=== PATIENT | female | born 1965 | race Caucasian/White ===

== ENCOUNTER 2022-05-01 06:40 | Inpatient (IN) | payer MEDICARE, OTHER ==
[~2022-05-01] VITALS: Ht 165.1 cm; Wt 52.1 kg
--- NOTE | 2022-05-01 10:13 | NUR ---
AMBULATED WITH STEADY GAIT TO [facility]. PT HYPERVERBAL, ASKING ABOUT SON. RE-ORIENTED PT TO ER AND WHY SHE IS HERE.
[2022-05-01 11:16] LABS: BASOPHILS # (AUTO) 0.1 X10'3 (0-0.2); BASOPHILS % (AUTO) 1.4 % (0-1); EOSINOPHILS % (AUTO) 0.6 % (0-6); HEMOGLOBIN 13.8 g/dl (12.0-16.0); LYMPHOCYTES % (AUTO) 29.5 % (21-51); MEAN CORPUSCULAR HEMOGLOBIN 31.1 PG (27.0-31.0); MEAN CORPUSCULAR HGB CONC 33.6 g/dL (33.0-36.5); MEAN CORPUSCULAR VOLUME 92.6 FL (78-98); MONOCYTES # (AUTO) 0.5 X10'3 (0-0.9); MONOCYTES % (AUTO) 7.5 % (2-12); NEUTROPHILS # (AUTO) 4.2 X10'3 (1.8-7.7); PLATELET COUNT 353 X10'3 (140-440); RED BLOOD COUNT 4.43 X10'6 (4.20-5.60); RED CELL DISTRIBUTION WIDTH 13.6 % (11.5-14.5); WHITE BLOOD COUNT 6.8 X10'3 (4.5-11.0)
[2022-05-01 11:39] LABS: ALANINE AMINOTRANSFERASE 35 U/L (12-78); ALBUMIN 4.3 G/DL (3.4-5.0); ALBUMIN/GLOBULIN RATIO 1.3 (1.1-1.5); ALKALINE PHOSPHATASE 79 IU/L (46-116); ANION GAP 12 (8-16); ASPARTATE AMINO TRANSFERASE 19 U/L (10-37); BILIRUBIN,TOTAL 0.6 MG/DL (0.1-1.0); BLOOD UREA NITROGEN 17 MG/DL (7-18); BUN/CREATININE RATIO 19.1 (6.6-38.0); CALCIUM 9.3 MG/DL (8.5-10.1); CHLORIDE 102 MMOL/L (99-107); CREATININE 0.89 MG/DL (0.40-0.90); GLUCOSE 78 MG/DL (70-104); POTASSIUM 3.8 MMOL/L (3.5-5.1); SODIUM 139 MMOL/L (135-145); TOTAL CARBON DIOXIDE 24.6 MMOL/L (24-32); TOTAL PROTEIN 7.5 G/DL (6.4-8.2); eGFR 66 ML/MIN
[2022-05-01 11:44] LABS: ETHANOL < 0.010 GM/DL (0.0-0.010)
[2022-05-01 11:54] LABS: CLARITY,URINE SLIGHTLY CLOUDY (Clear); GLUCOSE, URINE NEGATIVE (Neg); KETONES,URINE 40 mg/dl (Neg); LEUKOCYTE ESTERASE ,URINE NEGATIVE (Neg); NITRITES, URINE NEGATIVE (Neg); OCCULT BLOOD,URINE NEGATIVE (Neg); PROTEIN,URINE NEGATIVE (Neg); UROBILINOGEN,URINE 0.2 E.U/dL (0.2-1.0)
[2022-05-01 11:55] LABS: UA COLLECTION TYPE CLN CATCH MIDSTREAM
[2022-05-01 11:56] LABS: COLOR,URINE DARK YELLOW (Yellow)
[2022-05-01 12:01] LABS: BACTERIA,URINE 2+ /HPF (Neg); MUCUS STRANDS MODERATE /LPF (Neg); RBC,URINE NONE SEEN /HPF (0-2); SQUAMOUS EPITHELIAL CELL,UR MODERATE /LPF (FEW); WBC,URINE 0-4 /HPF (0-4)
[2022-05-01 12:02] LABS: TRANSITIONAL EPI CELLS,URINE FEW /HPF
[2022-05-01 12:15] LABS: URINE AMPHETAMINE SCREEN NEGATIVE (Neg); URINE BARBITUATE SCREEN NEGATIVE (Neg); URINE BENZODIAZEPINES SCREEN NEGATIVE (Neg); URINE CANNABINOID SCREEN POSITIVE (Neg); URINE COCAINE SCREEN NEGATIVE (Neg); URINE METHADONE SCREEN NEGATIVE (Neg); URINE OPIATE SCREEN NEGATIVE (Neg); URINE PHENCYCLIDINE SCREEN NEGATIVE (Neg)
--- NOTE | 2022-05-01 13:30 | NUR ---
Pt brought over to [facility] from [facility]. She appears hypomanic, paranoid and sounds delusional. She thinks this publications writer is someone she knows and states, "your the one with the kid named Minna, I'm leaving and goes towards the door." Pt redirected back to the area where her bed is. Pt cooperative. Pt reports she is not taking any of her medications other than Levothyroxine 100mcg. She does use CBD and CBG.
--- NOTE | 2022-05-01 15:10 | NUR ---
Pt resting on her bed. She appears to be sleeping. RR even and unlabored.
[2022-05-01] MEDS ORDERED: LEVO100T9 PO (16:09)
--- NOTE | 2022-05-01 17:37 | NUR ---
Pt's eyes are closed. She appears to be resting. RR even and unlabored.
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
[2022-05-01] MEDS: LIDOcaine 5% patch TP SCH (19:31)
--- NOTE | 2022-05-01 19:33 | NUR ---
The patient is refusing any kind of medications and the only thing that she would take was a lidocaine patch for her back pain.
[2022-05-01] MEDS ORDERED: OLANZapine 2.5MG tablet PO ONE (20:45)
--- NOTE | 2022-05-01 21:33 | NUR ---
The patient appears to be sleeping
--- NOTE | 2022-05-01 23:16 | NUR ---
The patient appears to be sleeping
--- NOTE | 2022-05-02 01:03 | NUR ---
The patient appears to be sleeping
--- NOTE | 2022-05-02 03:00 | NUR ---
The patient appears to be sleeping
--- NOTE | 2022-05-02 05:05 | NUR ---
The patient is awake at this time
--- NOTE | 2022-05-02 07:00 | NUR ---
Received Pt awake and writing notes and giving them to staff. Pt is cooperative and appears guarded but pleasant. Pt is writing notes as is trying to explain or figure out who peole in her life and explain events.
[2022-05-02] MEDS: levoTHYROXINE 100mcg tablet PO SCH (08:14)
[2022-05-02] MEDS: LIDOcaine 5% patch TP SCH (08:14)
--- NOTE | 2022-05-02 09:15 | NUR ---
Pt ate breakfast and used bathroom. Pt took AM meds and is resting in bed at this time.
--- NOTE | 2022-05-02 11:05 | NUR ---
Pt resting in bed with her eyes closed. No complaints or issues at this time.
--- NOTE | 2022-05-02 12:40 | NUR ---
olite to staff.Pt woke and ate lunch well. She used bathroom and returned to bed. Pt polite to staff.
--- NOTE | 2022-05-02 14:35 | NUR ---
Pt in bed resting. Pt alert and engages appropriately when approached. Explained to her the 5150 hold process and that she has been accepted at [facility].
[2022-05-02] MEDS ORDERED: mag hydrox/Alum hydrox/simeth 30ml oral suspension PO PRN (14:40)
[2022-05-02] MEDS ORDERED: loperamide 2mg capsule PO PRN (14:40)
[2022-05-02] MEDS ORDERED: magnesium hydroxide 30ml (MOM) UD suspension PO PRN (14:40)
[2022-05-02] MEDS ORDERED: acetaminophen 325mg tablet PO PRN (14:40)
--- NOTE | 2022-05-02 16:00 | NUR ---
Admit note: Pt admitted today to [place] for [facility] health on a 5150 for GD from our ER at 1520. Pt is expressing paranoid delusions, her thinking is not clear and she can not express how she will meet her basic needs. Pt has history of brain surgery for cyst.
[2022-05-02 16:14] VITALS: BP 109/79
[2022-05-02 19:22] VITALS: BP 127/76
[2022-05-02] MEDS ORDERED: traZODone 50mg tablet PO PRN (20:05)
[2022-05-02] MEDS ORDERED: OLANZapine 2.5MG tablet PO SCH (21:00)
[2022-05-02] MEDS: LORazepam 1 MG tablet PO PRN (21:07)
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
[2022-05-03 08:00] VITALS: BP 132/77
[2022-05-03] MEDS: levoTHYROXINE 100mcg tablet PO SCH (08:02)
[2022-05-03] MEDS: LIDOcaine 5% patch TP SCH (08:03)
[2022-05-03] MEDS: LORazepam 1 MG tablet PO PRN ×2 (08:07→17:09)
[2022-05-03 10:03] VITALS: BP 132/77
[2022-05-03] MEDS: ondansetron 4mg rapidly disintigrating tab PO PRN (10:42)
[2022-05-03] MEDS: acetaminophen 325mg tablet PO PRN ×2 (13:33→17:07)
--- NOTE | 2022-05-03 16:47 | NUR ---
Nursing Progress Note: Problem: Pt admitted to [place] for [facility]al health on a 5150 for GD from our ER at 1520. Pt is expressing paranoid delusions, her thinking is not clear and she cannot express how she will meet her basic needs. Pt has history of brain surgery for cyst. Intervention: Medication given as ordered. Provided with a safe and therapeutic environment, clear communication, active listening and positive encouragement. Medication administration as per ordered with no adverse effect. Response: Patient awake this morning for breakfast, but she declined. Patient panics this morning, and is nauseous and anxious. She was provided 1mg of Ativan, which was partially effective per patient. Dr. Marcelino was on the unit at the time, so I received order for Zofran Q6 PO PRN. It was administered with good results, and patient went back to sleep. She had already refused breakfast and now lunch. At 1330 patient c/o pain. She reports headache and back pain. I bring her Tylenol, oh, I dont take Tylenol. Its been found to cause Autism. Its all over the news. Patient turns over and goes back to sleep. Received a call from the Lab at ~1415 that patient is Positive for MRSA in N[place]. She will be counseled on hand washing. Plan: Patient continues to require crisis interruption and stabilization with medication management and monitoring in a safe and therapeutic environment.
[2022-05-03] MEDS ORDERED: traZODone 50mg tablet PO PRN (19:15)
[2022-05-03 19:40] VITALS: BP 128/71
[2022-05-03] MEDS: OLANZapine 2.5MG tablet PO SCH (20:25)
--- NOTE | 2022-05-04 03:18 | NUR ---
Nursing Progress Note: Problem: Pt admitted to [place] for [facility] health on a 5150 for GD from our ER at 1520. Pt is expressing paranoid delusions, her thinking is not clear and she cannot express how she will meet her basic needs. Pt has history of brain surgery for cyst. Intervention: Medication given as ordered. Provided with a safe and therapeutic environment, clear communication, active listening and positive encouragement. Medication administration as per ordered with no adverse effect. Response: Patient was observed sleeping at Change of shift. Patient continued to sleep until nurse came in to bring medication. Nurse struggled to wake patient to take meds. Patient took medications and retuned to bed. Patient stayed in room all shift sleeping. Patient awoke to ask for Ativan before falling back to sleep. Plan: Patient continues to require crisis interruption and stabilization with medication management and monitoring in a safe and therapeutic environment.
[2022-05-04 07:30] VITALS: BP 128/74
[2022-05-04] MEDS: LORazepam 1 MG tablet PO PRN ×3 (08:00→22:29)
[2022-05-04] MEDS: levoTHYROXINE 100mcg tablet PO SCH (08:00)
[2022-05-04] MEDS: LIDOcaine 5% patch TP SCH (08:00)
--- NOTE | 2022-05-04 17:28 | NUR ---
Nursing Progress Note: Problem: Pt admitted to [place] for Behavioral health on a 5150 for GD from our ER at 1520. Pt is expressing paranoid delusions, her thinking is not clear and she cannot express how she will meet her basic needs. Pt has history of brain surgery for cyst. Intervention: Medication given as ordered. Provided with a safe and therapeutic environment, clear communication, active listening and positive encouragement. Medication administration as per ordered with no adverse effect. Response: Patient was awakened for breakfast. She became very anxious and described how her sons had been murdered, and she had no idea the fate of her other child. Patient very delusional and disorganized. She was provided Ativan 1mg for her anxiety, which was helpful, and she went back to sleep. Patient did not eat breakfast, but asked for yogurt which she did consume. At 1330 patient was vomiting clear, small amount of bile. She wouldnt describe exactly what happened, just that she was upset, and thats what caused it. Patient then slept until ~1500. She was woken by her roommate screaming. This upset the patient. She was again provided 1mg of Ativan. Patient states my memories are all jumbled, I cant keep good and bad memories in my mind. I just need to get a hold of my people to let them know where I am, but I dont know exactly where my phone is. Patient says she will get up out of bed later today, I need somewhere to sit where I can feel the sun. She also says she will eat tonight. Plan: Patient continues to require crisis interruption and stabilization with medication management and monitoring in a safe and therapeutic environment.
[2022-05-04] MEDS ORDERED: traZODone 50mg tablet PO PRN (19:10)
[2022-05-04 19:50] VITALS: BP 154/100
[2022-05-04] MEDS: OLANZapine 2.5MG tablet PO SCH (20:44)
[2022-05-04] MEDS: traZODone 50mg tablet PO SCH (20:45)
--- NOTE | 2022-05-05 04:00 | NUR ---
Nursing Progress Note: Problem: Pt admitted to [place] for Behavioral health on a 5150 for GD from our ER at 1520. Pt is expressing paranoid delusions, her thinking is not clear and she cannot express how she will meet her basic needs. Pt has history of brain surgery for cyst. Intervention: Medication given as ordered. Provided with a safe and therapeutic environment, clear communication, active listening and positive encouragement. Medication administration as per ordered with no adverse effect. Response: Patient was found pacing around unit at beginning of shift. Patient kept to her self and when spoken to patient voice was low and difficult to hear. Patient was later found laying in bed. Patient didn't participate in snack and had to be shaken awake to take medications. Patient awoke an hr later asking for something for anxiety. Patient was given lorazepam and repeat trazodone. Patient was checked on again and hr later and found asleep. Plan: Patient continues to require crisis interruption and stabilization with medication management and monitoring in a safe and therapeutic environment.
[2022-05-05 07:21] VITALS: BP 143/91
[2022-05-05] MEDS: levoTHYROXINE 100mcg tablet PO SCH (07:46)
[2022-05-05] MEDS: LIDOcaine 5% patch TP SCH (07:52)
--- NOTE | 2022-05-05 11:34 | NUR ---
Flask Pusher recieved a phone call from Pt.s mother requesting an update on her condition. No one listed on release of documentation form, and pt. refused to give a verbal to disclose info to her Mom. Paperwork re car in [place] will be brought to Hospital today.
[2022-05-05] MEDS: LORazepam 1 MG tablet PO PRN (14:54)
--- NOTE | 2022-05-05 16:56 | NUR ---
Nursing Progress Note: Vandana Problem: Pt admitted to [place] for Behavioral health on a 5150 for GD from our ER at 1520. Pt is expressing paranoid delusions, her thinking is not clear and she cannot express how she will meet her basic needs. Pt has history of brain surgery for cyst. Intervention: Seed Analysis Laboratory Assistant continues to provide pt. with a safe and therapeutic environment, clear communication, active listening and positive encouragement. Pt. encouraged to participate on unit and in group therapy, and 1:1 assessment provided with medication administration. Q15min checks continue for pt. safety. Response: Pt. denies SI, HI, AH, but reports VH I see earrings in the right ear, oh you cant understand Pt. states she is here d/t my life is in danger, there is about 90 people who want to kill me, Im in hiding Her DC plans is to go with my boyfriend or to my sons in [facility]. Pt. presents as paranoid and fatigued and spent most of the shift lying in bed. She is disheveled and wearing unit scrubs. She did eat her meals in the dining room but had poor intake. This advertising copy writer encouraged pt. to increase her intake throughout the shift. Received a phone call from her Mother, but was unable to speak to her re pt. as her Mother is not listed on paperwork and pt. refused to give a verbal allowing me to speak to her Mom. Pt. approached advertising copy writer after lunch c/o I am such a wreck, so much anxiety PRN Ativan given. Pt. laid in bed listening to headphones until dinner. Received a phone call from pt.s Mother needing a second form from the [facility] with a notary stamp before the vehicle can be released; Called LUIS Marks requesting a f/u. Plan: Patient continues to require crisis interruption and stabilization with medication management and monitoring in a safe and therapeutic environment.
[2022-05-05 20:00] VITALS: BP 138/89
[2022-05-05] MEDS: traZODone 50mg tablet PO SCH (20:19)
[2022-05-05] MEDS: OLANZapine 2.5MG tablet PO SCH (20:20)
[2022-05-06] MEDS: baclofen 10mg tablet PO PRN ×2 (00:32→09:55)
--- NOTE | 2022-05-06 00:49 | NUR ---
Nursing Progress Note: Vandana Problem: Pt admitted to [place] for Behavioral health on a 5150 for GD from our ER at 1520. Pt is expressing paranoid delusions, her thinking is not clear and she cannot express how she will meet her basic needs. Pt has history of brain surgery for cyst. Intervention: Tobacco Sprayer continues to provide pt. with a safe and therapeutic environment, clear communication, active listening and positive encouragement. Pt. encouraged to participate on unit and in group therapy, and 1:1 assessment provided with medication administration. Q15min checks continue for pt. safety. Response: Pt lying in bed with headphones at change of shift. Had to wake pt up for HS medications and Lidocaine patch removed. Pt states she is afraid of her family and to please pray for her fianc. Pt. is fatigued and was in her bed most of the shift. She declined snacks. She is disheveled and wearing unit scrubs. Pt c/o pain 7/10 in her right lower back, 10MG of baclofen given with moderate effect. Plan: Patient continues to require crisis interruption and stabilization with medication management and monitoring in a safe and therapeutic environment.
[2022-05-06 07:21] VITALS: BP 139/93
[2022-05-06] MEDS: LIDOcaine 5% patch TP SCH (07:21)
[2022-05-06] MEDS: levoTHYROXINE 100mcg tablet PO SCH (07:21)
--- NOTE | 2022-05-06 11:13 | NUR ---
Initial: Pt admit for psychosis. Currently on a regular diet and overall eating poorly with average 21% PO intake throughout LOS as pt often refuses meals. Per oil and gas specialist pt also declines snacks. See recommended nutrition interventions below that were d/w dietary in hopes of optimizing PO intake. [facility] 05/04. Will continue to follow closely. Recommendations: 1) Continue regular diet 2) Trial yogurt WB, cottage cheese WL, and a shake WS 3) Continue to offer snacks and encourage PO intake; honor food preferences as able 4) Bowel care PRN 5) Weekly scaled weights Addendum: 05/06/22 at [address] Amended: Links added.
--- NOTE | 2022-05-06 16:31 | NUR ---
Nursing Progress Note: Vandana Problem: Pt admitted to [place] for Behavioral health on a 5150 for GD from our ER at 1520. Pt is expressing paranoid delusions, her thinking is not clear and she cannot express how she will meet her basic needs. Pt has history of brain surgery for cyst. Intervention: Mobile Developer continues to provide pt. with a safe and therapeutic environment, clear communication, active listening and positive encouragement. Pt. encouraged to participate on unit and in group therapy, and 1:1 assessment provided with medication administration. Q15min checks continue for pt. safety. Response: Pt. denies SI, HI, and A/ VH her DC plans remain unclear as she stated I may go with my boyfriend or my son Pt. reports 7/10 back pain and was administered routine lidocaine patch and PRN Tylenol was offered; she reports I cant take Tylenol it gives me Autism Mobile Developer provided PRN Baclofen. Pt. spent most of the shift lying in bed with sunglasses and headphones on. She approached content writer asking for 1:1 cream from [place] Mobile Developer is unfamiliar with this cream and pt. reported its CBD and Marijuana cream Mobile Developer encouraged pt. to discuss the cream with provider. Mobile Developer did also offer to contact provider for an alternative to Tylenol, pt. responded I dont take medications Today pt. did attend all meals in the dining room where she sat alone in a chair with her tray in her lap socializing with no one and typically ate poorly. Plan: Patient continues to require crisis interruption and stabilization with medication management and monitoring in a safe and therapeutic environment.
[2022-05-06] MEDS ORDERED: methyl salicylate/menthol cream 57gm TP PRN (18:00)
[2022-05-06] MEDS ORDERED: baclofen 10mg tablet PO PRN (18:00)
[2022-05-06 19:29] VITALS: BP 136/91
[2022-05-06] MEDS: OLANZapine 2.5MG tablet PO SCH (20:39)
[2022-05-06] MEDS: LORazepam 1 MG tablet PO PRN (20:40)
[2022-05-06] MEDS: traZODone 50mg tablet PO SCH (20:40)
--- NOTE | 2022-05-07 04:49 | NUR ---
Nursing Progress Note: Vandana Problem: Pt admitted to [place] for Behavioral health on a 5150 for GD from our ER at 1520. Pt is expressing paranoid delusions, her thinking is not clear and she cannot express how she will meet her basic needs. Pt has history of brain surgery for cyst. Intervention: Provide pt. with a safe and therapeutic environment, clear communication, active listening and positive encouragement. Pt. encouraged to participate on unit and in group therapy, and 1:1 assessment provided with medication administration. Q15min checks continue for pt. safety. Response: Patient was observed laying in bed with headphones and sunglass on at beginning of shift. Patient continued to sleep until waking up throwing up. Patient states that she hasn't really eaten all day because she can not stand the taste of the food and its all just so processed that it makes her sick. Patient was encouraged to eat some of a sandwich before taking night medication as to not irritate her stomach more. Patient took medication without issue including requested prn lorazepam before returning back to bed. Plan: Patient continues to require crisis interruption and stabilization with medication management and monitoring in a safe and therapeutic environment.
[2022-05-07] MEDS: levoTHYROXINE 100mcg tablet PO SCH (07:57)
[2022-05-07] MEDS: LIDOcaine 5% patch TP SCH (07:57)
[2022-05-07 08:00] VITALS: BP 130/70
--- NOTE | 2022-05-07 16:09 | NUR ---
Nursing Progress Note: Vandana Problem: Pt admitted to [place] for Behavioral health on a 5150 for GD from our ER at 1520. Pt is expressing paranoid delusions, her thinking is not clear and she cannot express how she will meet her basic needs. Pt has history of brain surgery for cyst. Intervention: Superannuation Clerk continues to provide pt. with a safe and therapeutic environment, clear communication, active listening and positive encouragement. Pt. encouraged to participate on unit and in group therapy, and 1:1 assessment provided with medication administration. Q15min checks continue for pt. safety. Response: Pt. denies SI, HI, and A/ VH her DC plans are let my son handle all of it, my son Yinka Pt. presents with some disorientation when discussing her Hx. She is guarded at times and disorganized. She spent most of the shift self-isolating, lying in bed listening to headphones and wearing sunglasses. She did attend all meals in the dining room but continues to have poor meal intake. She is disheveled and refused needing a shower. She takes her meds without hesitancy and has no c/o pain this shift. Plan: Patient continues to require crisis interruption and stabilization with medication management and monitoring in a safe and therapeutic environment.
[2022-05-07 20:00] VITALS: BP 161/77
[2022-05-07] MEDS: OLANZapine 2.5MG tablet PO SCH (20:17)
[2022-05-07] MEDS: traZODone 50mg tablet PO SCH (20:17)
[2022-05-07 21:09] VITALS: BP 161/77
--- NOTE | 2022-05-08 00:11 | NUR ---
Nursing Progress Note: Vandana Problem: Patient admitted to [place] for Behavioral health on a 5150 for GD from our ER at 1520. Pt is expressing paranoid delusions, her thinking is not clear and she cannot express how she will meet her basic needs. Pt has history of brain surgery for cyst. Intervention: Provide patient with a safe and therapeutic environment, clear communication, active listening and positive encouragement. Pt. encouraged to participate on unit and in group therapy, and 1:1 assessment provided with medication administration. Q15min checks continue for pt. safety. Response: Patient found laying down in bed at shift change. Patient listening to headphones. Patient 1:1, pt denies all MH S/S. Patient complained of a small headache when offered Tylenol the pt stated that "Tylenol causes Autism, and just wait and see!" Pt pleasant otherwise and cooperative. Took evening meds w/o complaint. Reports that she ate all of her dinner that evening. Pt went to bed shortly after med pass. Plan: Patient continues to require crisis interruption and stabilization with medication management and monitoring in a safe and therapeutic environment.
[2022-05-08 07:53] VITALS: BP 104/66
[2022-05-08] MEDS: LIDOcaine 5% patch TP SCH (08:30)
[2022-05-08] MEDS: levoTHYROXINE 100mcg tablet PO SCH (08:30)
--- NOTE | 2022-05-08 17:21 | NUR ---
Nursing Progress Note: Problem: Pt admitted to [place] for Behavioral health on a 5150 for GD from our ER at 1520. Pt is expressing paranoid delusions, her thinking is not clear and she cannot express how she will meet her basic needs. Pt has history of brain surgery for cyst. Intervention: Attempted to provide 1:1 assessment and administer medications. Provided clear communication and positive encouragement. Monitored Q15min safety checks. Response: Pt did not want anything to do with this nurse. Another nurse administered medications and assisted with the AM assessment. Pt spent most of the day curled up on her bed with headphones on. Plan: Patient continues to require crisis interruption and stabilization with medication management and monitoring in a safe and therapeutic environment.
[2022-05-08 20:39] VITALS: BP 117/86
[2022-05-08] MEDS ORDERED: amitriptyline 25mg tablet PO SCH (21:00)
[2022-05-08] MEDS: OLANZapine 2.5MG tablet PO SCH (21:22)
[2022-05-08] MEDS: amitriptyline 50mg tablet PO SCH (21:22)
[2022-05-08] MEDS: olanzapine 10mg tablet PO PRN (23:59)
[2022-05-08] MEDS: LORazepam 1 MG tablet PO PRN (23:59)
--- NOTE | 2022-05-09 00:01 | NUR ---
Nursing Progress Note: Vandana Problem: Patient admitted to [place] for Behavioral health on a 5150 for GD from our ER at 1520. Pt is expressing paranoid delusions, her thinking is not clear and she cannot express how she will meet her basic needs. Pt has history of brain surgery for cyst. Intervention: Provide patient with a safe and therapeutic environment, clear communication, active listening and positive encouragement. Pt. encouraged to participate on unit and in group therapy, and 1:1 assessment provided with medication administration. Q15min checks continue for pt. safety. Response: Patient lying in bed at shift change. patient cooperative and polite. Patient 1:1 pt denies A/V H, S/I H/I. Patient refused snack. Patient took evening meds w/o complications. Patient complained had diarrhea. Imodium given with good effect. Patient later woke with anxiety and complained of not being able to sleep. Zyprexa and Ativan given with good effect. Plan: Patient continues to require crisis interruption and stabilization with medication management and monitoring in a safe and therapeutic environment.
--- NOTE | 2022-05-09 07:32 | NUR ---
Reassessment: Pt continues on Regular diet w/ variable PO intake, avg 46% x 10 meals which meets approximately 85% of est energy needs and 100% of est protein needs. Pt also receiving additional food items w/ meal trays. LBM 05/08 reported to be diarrhea, receiving PRN imodium. No change to recommendations, will continue to monitor. Recommendations: 1) Continue regular diet 2) Yogurt WB, cottage cheese WL, and a shake WS 3) Continue to offer snacks and encourage PO intake; honor food preferences as able 4) Bowel care PRN 5) Weekly scaled weights Addendum: 05/09/22 at [address] Amended: Links added.
[2022-05-09 08:00] VITALS: BP 102/70
[2022-05-09] MEDS: LIDOcaine 5% patch TP SCH (08:14)
[2022-05-09] MEDS: levoTHYROXINE 100mcg tablet PO SCH (08:14)
--- NOTE | 2022-05-09 13:42 | NUR ---
[address] SINDI Godoy
--- NOTE | 2022-05-09 15:57 | NUR ---
Nursing Progress Note: Problem: Pt admitted to [place] for Behavioral health on a 5150 for GD from our ER at 1520. Pt is expressing paranoid delusions, her thinking is not clear and she cannot express how she will meet her basic needs. Pt has history of brain surgery for cyst. Intervention: Provided 1:1 assessment with therapeutic communication and active listening. Medication administration, education and monitoring. Prompts provided to get pt to come out of her room for meals and activities. Provided clear communication and positive encouragement. Monitored Q15min safety checks. Response: Pt denies SI/HI, A/VH. Pt joined peers in the main room for meals. She was compliant with medications and treatment. She spent most of the day on her bed curled up into a ball with headphones on. Plan: Patient continues to require crisis interruption and stabilization with medication management and monitoring in a safe and therapeutic environment.
[2022-05-09 19:56] VITALS: BP 108/69
[2022-05-09] MEDS: OLANZapine 2.5MG tablet PO SCH (20:41)
[2022-05-09] MEDS: amitriptyline 50mg tablet PO SCH (20:41)
[2022-05-09] MEDS: olanzapine 10mg tablet PO PRN (22:53)
[2022-05-09] MEDS: LORazepam 1 MG tablet PO PRN (22:53)
--- NOTE | 2022-05-10 00:25 | NUR ---
Nursing Progress Note: Vandana Problem: Pt admitted to [facility] for Behavioral health on a 5150 for GD from our ER at 1520. Pt is expressing paranoid delusions, her thinking is not clear and she cannot express how she will meet her basic needs. Pt has history of brain surgery for cyst. Intervention: Provided 1:1 assessment with therapeutic communication and active listening. Medication administration, education and monitoring. Prompts provided to get pt to come out of her room for meals and activities. Provided clear communication and positive encouragement. Monitored Q15min safety checks. Response: Pt denies SI/HI, A/VH, but states she always has anxiety. Pt c/o lower back pain 04/17, removed lidocaine patch. She was compliant with medications and treatment. Pt isolated to her room lying in bed with headphones on. Pt up around 2300 c/o being wide awake, pt given PRN Ativan and Zyprexa with good effect. Plan: Patient continues to require crisis interruption and stabilization with medication management and monitoring in a safe and therapeutic environment.
[2022-05-10 07:20] VITALS: BP 99/75
[2022-05-10] MEDS: levoTHYROXINE 100mcg tablet PO SCH (07:59)
[2022-05-10] MEDS: LIDOcaine 5% patch TP SCH (08:00)
--- NOTE | 2022-05-10 14:28 | NUR ---
Vandana's mother, Cheryl (ph# [phone]), called to request a notary come to the unit for Vandana to sign a document in order for family to get her car out of impound. Spoke to Vandana about this and she is agreeable to signing the document. However, she was very specific about not wanting her mom involved. She would like her car towed to [facility] parking lot so it will be available to her upon discharge. Vandana reported she does not want to return to her home. She reported "it is not safe". She did not know where she will go upon discharge. Cheryl reported that Vandana has not paid rent since Nov and that the landlord has been kind to Vandana and allowed her to stay there. Cheryl expressed concern that Vandana should not live by herself, "she's nutty and can't take care of herself". Cheryl is going to try to coordinate a notary to come onto the unit and will let clinical social worker know. Electromechanical Equipment Tester got the OK from Roby, Director, for a notary to come onto the unit. SINDI Godoy
--- NOTE | 2022-05-10 15:12 | NUR ---
Pt. attended group today. Todays group was about the difference between Growth Mindset vs. Fixed Mindset. We learned about the differences and then discussed what aspect of developing a growth mindset they wanted to work on. Pt engaged appropriately in the group. She shared her thoughts easily. Her thought content appeared to have some paranoia, her thought process was linear. She was alert and oriented X 4. Her demeanor was calm, compliant and pleasant to work with. She was pleasant to her peers and engaged well with the group. She appeared to enjoy socializing. Her mood was good with a full range of affect. She showed insight in to her mental illness and her process. She was able to engage with what we were talking about well and think about what she wants to let go of in terms of that things that are hindering her and was also able to say what things she wants to keep a hold of. Cynthia Shipley, SNACK FOODS MIXER OPERATOR
[2022-05-10 20:00] VITALS: BP 95/68
[2022-05-10] MEDS: OLANZapine 2.5MG tablet PO SCH (20:23)
[2022-05-10] MEDS: amitriptyline 50mg tablet PO SCH (20:23)
[2022-05-11] MEDS: LORazepam 1 MG tablet PO PRN (00:26)
[2022-05-11] MEDS: olanzapine 10mg tablet PO PRN (00:26)
--- NOTE | 2022-05-11 00:48 | NUR ---
Nursing Progress Note: Vandana Problem: Pt admitted to [place] for Behavioral health on a 5150 for GD from our ER at 1520. Pt is expressing paranoid delusions, her thinking is not clear and she cannot express how she will meet her basic needs. Pt has history of brain surgery for cyst. Intervention: Provided 1:1 assessment with therapeutic communication and active listening. Medication administration, education and monitoring. Prompts provided to get pt to come out of her room for meals and activities. Provided clear communication and positive encouragement. Monitored Q15min safety checks. Response: Pt denies SI/HI, A/VH, seems to be in good spirits. She has some mild anxiety but denies depression. Pt states she wants to stay here until but is unsure of where she will go. She wants to get some of her personal items from a friends house. Pt has some paranoia regarding another peer on the unit who she avoids. Pt states her Elavil makes her feel wired and she cant sleep. Pt given PRN Ativan and Zyprexa at 0030. Plan: Patient continues to require crisis interruption and stabilization with medication management and monitoring in a safe and therapeutic environment.
[2022-05-11] MEDS: levoTHYROXINE 100mcg tablet PO SCH (07:41)
[2022-05-11] MEDS: LIDOcaine 5% patch TP SCH ×2 (07:42→08:00)
[2022-05-11 08:00] VITALS: BP 99/80
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
--- NOTE | 2022-05-11 12:19 | NUR ---
Phone call with son-Yinka Honeycutt (ph# [phone]), Vandana's son, returned keno writer's call. Inquired about housing options and he reported he does not know of any. Yinka reported he lives in [facility]. He reported he had not talked to his mom for a couple months prior to her being in the hospital. He reported she had said some things to him that he felt required him to have some space from her. He reported none of the women in his family talk to each other-Vandana refuses to talk to her mother, Cheryl, and Vandana also does not have contact with her daughter (Yinka's older sister). Yinka reported he has an 18 y/o brother with autism who lives with their father in [place]. He reported his parents were for almost 30 years and that they have been for the last 10-11 years. He reported the person who Vandana is calling her boyfriend is 28 y/o and Yinka went to high school with him and he does not know what the real nature of their relationship is. SINDI Godoy
--- NOTE | 2022-05-11 12:30 | NUR ---
KHALIF Rsos's mother, Cheryl (ph# [phone]), called to report that a khalif will come to the hospital at 1 PM today to meet with Vandana to have her sign paperwork in order for the family to be able to get her car out of impound. SINDI Godoy
--- NOTE | 2022-05-11 16:54 | NUR ---
Nursing Progress Note: Problem: Pt admitted to [place] for Behavioral health on a 5150 for GD from our ER at 1520. Pt is expressing paranoid delusions, her thinking is not clear and she cannot express how she will meet her basic needs. Pt has history of brain surgery for cyst. Intervention: Provided 1:1 assessment with therapeutic communication and active listening. Medication administration, education and monitoring. Prompts provided to get pt to come out of her room for meals and activities. Provided clear communication and positive encouragement. Monitored Q15min safety checks. Response: Patient slept until breakfast. Easily wakes for morning meds. Patient accepted Synthroid, but declined Lidocaine patch, I dont need that because Im leaving today. She has spent all day in her room. In the afternoon a director of publications came to see her and have papers signed. Patient appears to be paranoid and anxious, but refuses assistance with it. She denies MH symptoms. Plan: Patient continues to require crisis interruption and stabilization with medication management and monitoring in a safe and therapeutic environment.
--- NOTE | 2022-05-11 16:55 | NUR ---
VEHICLE Vandana's vehicle, [employer], will get towed to the parking lot across the street from the hospital (employee parking) tomorrow per her mother, Cheryl. SINDI Godoy
[2022-05-11 19:48] VITALS: BP 104/68
[2022-05-11] MEDS: OLANZapine 2.5MG tablet PO SCH (20:43)
[2022-05-11] MEDS: tizanidine 4mg tablet PO PRN (20:43)
[2022-05-11] MEDS: prazosin 1mg capsule PO SCH (20:43)
--- NOTE | 2022-05-12 00:27 | NUR ---
Nursing Progress Note: Nessa Problem: Pt admitted to [place] for Behavioral health on a 5150 for GD from our ER at 1520. Pt is expressing paranoid delusions, her thinking is not clear and she cannot express how she will meet her basic needs. Pt has history of brain surgery for cyst. Intervention: Provided 1:1 assessment with therapeutic communication and active listening. Medication administration, education and monitoring. Prompts provided to get pt to come out of her room for meals and activities. Provided clear communication and positive encouragement. Monitored Q15min safety checks. Response: Patient in her room sitting writing with headphones on. Pt said she talked with her aunt today and that it went well. She continues to exhibits some anxiety and paranoia with another peer on the unit and stays out of his way. She c/o of back pain 05/18, provider notified and PRN 4MG of zanaflex given. She denies MH symptoms. Plan: Patient continues to require crisis interruption and stabilization with medication management and monitoring in a safe and therapeutic environment.
[2022-05-12 08:41] VITALS: BP 103/74
[2022-05-12] MEDS: olanzapine 10mg tablet PO SCH (09:20)
[2022-05-12] MEDS: levoTHYROXINE 100mcg tablet PO SCH (09:20)
[2022-05-12] MEDS: LIDOcaine 5% patch TP SCH (09:53)
[2022-05-12] MEDS ORDERED: ketorolac tromethamine 15mg/ml inj. IM ONE (10:40)
[2022-05-12] MEDS ORDERED: ketorolac trometh. 30mg/ml inj. IM ONE (10:55)
--- NOTE | 2022-05-12 11:21 | NUR ---
Reassessment: PO intake continues to fluctuate however overall appears to be improving, documented with average 56% PO intake of meals meeting 100% of estimated protein and energy needs. Pt continues receiving additional food items on meal trays in hopes of optimizing PO intake. LBM 05/10. No further nutrition intervention implemented at this time. Will continue to follow. Recommendations: 1) Continue regular diet 2) Yogurt WB, cottage cheese WL, and a shake WS 3) Continue to offer snacks and encourage PO intake; honor food preferences as able 4) Bowel care PRN 5) Weekly scaled weights Addendum: 05/12/22 at [address] Amended: Links added.
--- NOTE | 2022-05-12 12:18 | NUR ---
DECLINED TO APPLY FOR [employer] Per Lorenza Lucio, Patient Service Rep., [employer] RECEIVED REFERRAL FROM ADMITTING VIA EMAIL. PT WITH [facility] PART [facility] ONLY. SHE HAD [facility] THAT TERMED ON 04/28/22. FOLLOWED UP WITH PT INHOUSE. VERIFIED DEMOGRAPHICS. PT STATES TO RECEIVE $3500/MONTH FROM [email or web address] [facility] BUT PAYS $1000/MONTH TOWARDS CHILD SUPPORT. SHE DECLINED ASSISTANCE WITH [employer] STATING SHE DOES NOT QUALIFY. EXPLAINED TO PT SHE CAN HAVE BENEFITS WITH [employer] BUT SHE DECLINED DUE TO HIGH [employer]. SHE STATES SHE PLANS ON REINSTATING HER [facility] BENEFITS WHEN SHE RETURNS BACK TO HER JOB THROUGH [employer]. PT WAS PROVIDED WITH [employer] CONTACT INFO, ACCOUNT WILL BE CLOSED. SINDI Godoy
--- NOTE | 2022-05-12 16:58 | NUR ---
Nursing Progress Note: Problem: Pt admitted to [place] for Behavioral health on a 5150 for GD from our ER at 1520. Pt is expressing paranoid delusions, her thinking is not clear and she cannot express how she will meet her basic needs. Pt has history of brain surgery for cyst. Intervention: Provided 1:1 assessment with therapeutic communication and active listening. Medication administration, education and monitoring. Prompts provided to get pt to come out of her room for meals and activities. Provided clear communication and positive encouragement. Monitored Q15min safety checks. Response: Patient was up for breakfast and morning meds. She ate breakfast and went back to her room to wait for a shower. After her shower, she allowed the Lidocaine patch to be placed. Patient was talkative this morning. She talk about high schools not having nurses anymore, and theres this radio neuropsychiatrist that she listens to that she believes should be played in schools that would help people not become cutters. Patient knows that her car has been retrieved from the tow yard, but not exactly where it is. She has been compliant with medications, and seems indifferent to being here. She has been told that shell be here longer, and has no problem with it. Plan: Patient continues to require crisis interruption and stabilization with medication management and monitoring in a safe and therapeutic environment.
[2022-05-12 19:00] VITALS: BP 114/77
[2022-05-12] MEDS: prazosin 1mg capsule PO SCH (20:53)
[2022-05-12] MEDS: OLANZapine 2.5MG tablet PO SCH (21:00)
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
[2022-05-13 07:08] VITALS: BP 111/74
[2022-05-13] MEDS: olanzapine 10mg tablet PO SCH (07:23)
[2022-05-13] MEDS: levoTHYROXINE 100mcg tablet PO SCH (07:23)
[2022-05-13] MEDS: LIDOcaine 5% patch TP SCH (07:27)
--- NOTE | 2022-05-13 17:07 | NUR ---
Nursing Progress Note: Problem: Pt admitted to [place] for Behavioral health on a 5150 for GD from our ER at 1520. Pt is expressing paranoid delusions, her thinking is not clear and she cannot express how she will meet her basic needs. Pt has history of brain surgery for cyst. Intervention: Provided 1:1 assessment with therapeutic communication and active listening. Medication administration, education and monitoring. Prompts provided to get pt to come out of her room for meals and activities. Provided clear communication and positive encouragement. Monitored Q15min safety checks. Response: Patient slept until breakfast. She was compliant with AM meds. Her appetite is good and shes eating her meals. Patient has been brought some belongings, and is dressing in her personal clothes. She mostly sits in her room with sunglasses and headphones on. Patient has no problem with her new roommate. She continues to be delusional and hypervigilant about another patient that she believes has bad energy and can cause harm. I can tell if someone is planning harm. That patient has been discharged today. Patient now coming out of her room and joining the milieu. She is in her own personal clothing and feeling more comfortable. Patient has an outgoing roommate that draws her out of the room. She continues to deny all MH symptoms. Plan: Patient continues to require crisis interruption and stabilization with medication management and monitoring in a safe and therapeutic environment.
[2022-05-13] MEDS: tizanidine 4mg tablet PO PRN (19:24)
[2022-05-13] MEDS: LORazepam 1 MG tablet PO PRN (19:24)
[2022-05-13 20:00] VITALS: BP 101/67
[2022-05-13] MEDS: prazosin 1mg capsule PO SCH (20:47)
[2022-05-13] MEDS: OLANZapine 2.5MG tablet PO SCH (20:48)
--- NOTE | 2022-05-14 03:46 | NUR ---
Nursing Progress Note: RENNY RN Problem: Pt admitted to [place] for Behavioral health on a 5150 for GD from our ER at 1520. Pt is expressing paranoid delusions, her thinking is not clear and she cannot express how she will meet her basic needs. Pt has history of brain surgery for cyst. Intervention: Provided 1:1 assessment with therapeutic communication and active listening. Medication administration, education and monitoring. Prompts provided to get pt to come out of her room for meals and activities. Provided clear communication and positive encouragement. Monitored Q15min safety checks. Response: Patient was pleasant when I went to introduce myself at the beginning of shift. Patient is respectful and receptive to care. She was compliant with assessments and expressed that she would like her clothes that she came with on admission. PM medications administered as well. She also complained of backache of which meds were given. Patient had headphones on and also reading a book. She continues to be delusional and hypervigilant about another patient that she believes has bad energy and can cause harm. I can tell if someone is planning harm. Offered Ativan to calm her down and patient has been sleeping through the night. No other complaints and she remained in her room the rest of the night. Plan: Patient continues to require crisis interruption and stabilization with medication management and monitoring in a safe and therapeutic environment.
[2022-05-14 07:30] VITALS: BP 101/69
[2022-05-14] MEDS: LIDOcaine 5% patch TP SCH ×2 (08:00→08:39)
[2022-05-14] MEDS: levoTHYROXINE 100mcg tablet PO SCH (08:39)
[2022-05-14] MEDS: OLANZapine 2.5MG tablet PO SCH ×2 (08:51→22:26)
--- NOTE | 2022-05-14 15:38 | NUR ---
Nursing Progress Note: Vandana Problem: Pt admitted to [place] for Behavioral health on a 5150 for GD from our ER at 1520. Pt is expressing paranoid delusions, her thinking is not clear and she cannot express how she will meet her basic needs. Pt has history of brain surgery for cyst. Intervention: Medication given as ordered. Provided with a safe and therapeutic environment, clear communication, active listening and positive encouragement. Response: Patient is resting quietly in bed at the start of the shift. Joins her peers in the dining room for meals and interacts appropriately. Isolates to her room most of the day. Patient appears guarded and denies any mental health symptoms. Appears paranoid. Complains of pain and numbness in her back and legs but the location of pain and numbness appears to change. Refuses the Lidoderm patch stating that it has no effect. Patch D/Cd. Plan: Patient continues to require crisis interruption and stabilization with medication management and monitoring in a safe and therapeutic environment.
[2022-05-14 19:00] VITALS: BP 145/105
[2022-05-14] MEDS: ondansetron 4mg rapidly disintigrating tab PO PRN (19:33)
[2022-05-14] MEDS: LORazepam 1 MG tablet PO PRN (19:38)
[2022-05-14] MEDS: tizanidine 4mg tablet PO PRN (19:39)
[2022-05-14 21:00] VITALS: BP_SYST 86; BP_SYST 88; BP_DIAS 54; BP_DIAS 64
[2022-05-14] MEDS: prazosin 1mg capsule PO SCH (21:00)
[2022-05-14] MEDS ORDERED: normal saline 1000ml 1,000 ML IV ONE (21:25)
[2022-05-15 00:15] VITALS: BP 98/62
--- NOTE | 2022-05-15 04:43 | NUR ---
Nursing Progress Note: Vandana Problem: Pt admitted to [place] for Behavioral health on a 5150 for GD from our ER at 1520. Pt is expressing paranoid delusions, her thinking is not clear and she cannot express how she will meet her basic needs. Pt has history of brain surgery for cyst. Intervention: Medication given as ordered. Provided with a safe and therapeutic environment, clear communication, active listening and positive encouragement. Response: At shift change, pt found in bed; states she is nauseated & feels nervous; pt very agitated & also c/o's pain; also concerned that her b/p is high. medicated with zofran, ativan & zanaflex; pt wearing her own clothes; appearance slightly disheveled; refuses shower; only wanted to change into green scrubs; pt isolates in room; Becoming calmer after PRN meds were given; awaken to recheck b/p with SPB in the 80's; pt arouses easily, & states she feels better; per Dr Reyes orders, PIV placed; one liter NS bolus given. Plan: Patient continues to require crisis interruption and stabilization with medication management and monitoring in a safe and therapeutic environment.
[2022-05-15] MEDS: OLANZapine 2.5MG tablet PO SCH ×2 (07:28→22:11)
[2022-05-15] MEDS: levoTHYROXINE 100mcg tablet PO SCH (07:28)
[2022-05-15 08:04] VITALS: BP 105/74
[2022-05-15] MEDS: ondansetron 4mg rapidly disintigrating tab PO PRN ×2 (08:39→14:50)
--- NOTE | 2022-05-15 17:10 | NUR ---
Nursing Progress Note: Vandana Problem: Pt admitted to [place] for Behavioral health on a 5150 for GD from our ER at 1520. Pt is expressing paranoid delusions, her thinking is not clear and she cannot express how she will meet her basic needs. Pt has history of brain surgery for cyst. Intervention: Medication given as ordered. Provided with a safe and therapeutic environment, clear communication, active listening and positive encouragement. Response: Patient is resting quietly in bed at the start of the shift. Cooperative with medication and assessment. Patient has 1 episode of emesis just following breakfast. PRN Zofran is given with good effect. She is guarded and minimizes her mental health symptoms. Patient has 1 small episode of emesis after lunch. PRN Zofran given with good results. Isolates to her room except for meals and to meet her needs. Plan: Patient continues to require crisis interruption and stabilization with medication management and monitoring in a safe and therapeutic environment.
[2022-05-15] MEDS: LORazepam 1 MG tablet PO PRN (19:02)
[2022-05-15 19:27] VITALS: BP 161/101
[2022-05-15] MEDS: prazosin 1mg capsule PO SCH (21:00)
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
[2022-05-16] MEDS: olanzapine 10mg tablet PO PRN (04:46)
--- NOTE | 2022-05-16 04:47 | NUR ---
PRN Zyprexa given. Pt got up tearful and agitated.
[2022-05-16] MEDS: levoTHYROXINE 100mcg tablet PO SCH (07:38)
[2022-05-16] MEDS: OLANZapine 2.5MG tablet PO SCH ×2 (07:39→20:29)
[2022-05-16 08:00] VITALS: BP 87/67
--- NOTE | 2022-05-16 10:05 | NUR ---
CASE MANAGEMENT Spoke with DR. Ribera office where Pt. wanted to access outpt. mental health services, due to her not having Medicare Part B they will not take her insurance (she only has Medicare Part A). Gave Pt. information for [employer] for her to apply to so she can have some coverage if she wishes. At this point she would have to be a márquez pay to enroll with Dr. Ribera. Cynthia Shipley, ENGRAVING PATTERNMAKER
--- NOTE | 2022-05-16 18:12 | NUR ---
Nursing Progress Note: Problem: Pt admitted to [place] for Behavioral health on a 5150 for GD from our ER at 1520. Pt is expressing paranoid delusions, her thinking is not clear and she cannot express how she will meet her basic needs. Pt has history of brain surgery for cyst. Intervention: Medication given as ordered. Provided with a safe and therapeutic environment, clear communication, active listening and positive encouragement. Response: Received Pt in bed sleeping w/o distress at the beginning of this shift. Pt woke and was cooperative with vitals and took AM meds w/o issue. Pt ate breakfast and lunch with others, but isolated to room rest of the day mostly. Did not socialize with others. Pt spoke of her mother as a foster mother. She believes she is leaving today and is concerned about her animals. Pt visibly upset that she is not being discharged today. Pt at 1800 c/o MOMIN and offered Tylenol. Pt stated Tylenol causes autism. She stated that sumatriptan helps. Plan: Patient continues to require crisis interruption and stabilization with medication management and monitoring in a safe and therapeutic environment.
[2022-05-16] MEDS ORDERED: SUMAtriptan 25 MG tablet PO ONE (18:40)
[2022-05-16] MEDS ORDERED: SUMAtriptan 25 MG tablet PO PRN (18:40)
[2022-05-16] MEDS: ondansetron 4mg rapidly disintigrating tab PO PRN (18:47)
[2022-05-16 19:30] VITALS: BP 119/82
[2022-05-16] MEDS: prazosin 1mg capsule PO SCH (20:29)
--- NOTE | 2022-05-17 00:05 | NUR ---
Nursing Progress Note: Problem: Pt admitted to [facility] for [facility] health on a 5150 for GD from our ER at 1520. Pt is expressing paranoid delusions, her thinking is not clear and she cannot express how she will meet her basic needs. Pt has history of brain surgery for cyst. Intervention: One to one with the patient to assess severity of thought disorder. Physical assessment done. Dr. Marcelino made aware that the patient complained of a severe migraine headache and orders received. Medication administration. Assessed for medication side effects. She is on q 15 minute safety checks. Zofran given for complaint of nausea. Response: The patient had total relief from her migraine headache with initial dose of Imitrex. She also had total relief of her nausea with the zofran given. The patient was cooperative with the assessment but her speech was pressured. She appeared disheveled and stated stated that she had only two showers here in the hospital but declined an offer of a shower this evening because she believed that she would be discharged tomorrow and she would take a shower at home. She reports she is sleeping well in the hospital. When asked about her appetite she stated that she was starving her in the hospital because she was not getting foods that she felt were appropriate. She denies psychotic symptoms but some of her replies were intense and did not seem based in reality for example her food requirements. She is not wanting to have any contact with her foster mother and stated that she found out that she is not her real mother. She was isolative to her room. Plan: Continue to provide supportive environment. Encourage daily hygiene/showers. Assess for severity of thought disorder at least every shift and PRN.
[2022-05-17 08:00] VITALS: BP 93/68
[2022-05-17] MEDS: OLANZapine 2.5MG tablet PO SCH (08:08)
[2022-05-17] MEDS: levoTHYROXINE 100mcg tablet PO SCH (08:08)
--- NOTE | 2022-05-17 08:34 | NUR ---
Reassessment: PO intake continues to fluctuate, documented with average 59% PO intake of meals meeting 100% of estimated protein and energy needs. Pt continues receiving additional food items on meal trays in hopes of optimizing PO intake. LB 05/10. No further nutrition intervention implemented at this time. Will continue to follow. Recommendations: 1) Continue regular diet 2) Yogurt WB, cottage cheese WL, and a shake WS 3) Continue to offer snacks and encourage PO intake; honor food preferences as able 4) Bowel care PRN 5) Weekly scaled weights Addendum: 05/17/22 at [address] Amended: Links added.
[2022-05-17] MEDS: ondansetron 4mg rapidly disintigrating tab PO PRN (09:56)
[2022-05-17] MEDS: LORazepam 1 MG tablet PO PRN (12:43)
[2022-05-17] MEDS ORDERED: LEVO100T9 PO (15:51)
[2022-05-17] MEDS ORDERED: PRAZ1CAP5 PO (15:51)
[2022-05-17] MEDS ORDERED: OLAN15TA20 PO (15:52)
[2022-05-17] MEDS ORDERED: OLAN2.5T28 PO (15:52)
--- NOTE | 2022-05-17 16:58 | NUR ---
Nursing Progress Note: Problem: Pt admitted to [place] for [facility] health on a 5150 for GD from our ER at 1520. Pt is expressing paranoid delusions, her thinking is not clear and she cannot express how she will meet her basic needs. Pt has history of brain surgery for cyst. Intervention: Medication given as ordered. Provided with a safe and therapeutic environment, clear communication, active listening and positive encouragement. Keeping nausea/vomiting at bay. Response: Patient was asleep at change of shift and up for breakfast. Patient requested Zofran for nausea in the morning. Then patient made a delusional statement about another nurse. Then in the early afternoon RN was speaking to her roommate on the other side of the curtain. Patient started responding strangely to the conversation between RN and her roommate. Patient c/o anxiety and nausea in the afternoon before lunch. RN gave patient 1 mg Ativan and as of this writing the patient is still sleeping. Plan: Patient continues to require crisis interruption and stabilization with medication management and monitoring in a safe and therapeutic environment.
== END 2022-05-17 18:25 | disposition home or self-care (01) | DRG 885 ==
LOC: ER 06:41 → ADULT MH 05-02 14:10
PROVIDERS: ADMIT Psychiatry & Neurology Psychiatry; ATTEND Psychiatry & Neurology Psychiatry
DX: F29 Unspecified psychosis not due to a substance or known physiological condition (principal); F22 Delusional disorders; E03.9 Hypothyroidism, unspecified; F12.10 Cannabis abuse, uncomplicated; M54.50 Low back pain, unspecified; M54.9 Dorsalgia, unspecified; R11.0 Nausea; F41.9 Anxiety disorder, unspecified; G89.29 Other chronic pain; Z20.822 Contact with and (suspected) exposure to COVID-19; Z87.828 Personal history of other (healed) physical injury and trauma; Z91.410 Personal history of adult physical and sexual abuse; Z98.84 Bariatric surgery status
CPT/HCPCS: 36415; 80053; 80305; 80320; 81001; 84439; 84443; 85025; 87081; 99285; J1885; J7030

== ENCOUNTER 2022-08-29 10:47 | Inpatient (IN) | payer MEDICARE ==
[~2022-08-29] VITALS: Ht 165.1 cm; Wt 58.9 kg
[~2022-08-29 10:47] MED LIST: LEVO100T9 PO; OLAN15TA20 PO; OLAN2.5T28 PO; PRAZ1CAP5 PO
--- NOTE | 2022-08-29 11:50 | NUR ---
PT REFUSING COVID SWABFIGHTING WITH [employer] AND STAFF ABOUT HAVING ONE DONE.
--- NOTE | 2022-08-29 13:30 | NUR ---
PT BEING UNCOOPERATIVE TRYING TO FIGHT STAFF WHEN NEEDING TO DRAW BLOOD. CURSING AT STAFF, TELLING STAFF THAT WE HAVE TO HOLD HER DOWN BECAUSE SHE IS NOT GOING TO WILLINGLY DO ANYTHING.
[2022-08-29] MEDS ORDERED: haloperidol lactate 5mg/ml inj IM ONE (13:45)
[2022-08-29] MEDS ORDERED: haloperidol lactate 5mg/ml inj ONE (13:45)
[2022-08-29] MEDS ORDERED: LORazepam 2 mg/ml vial IM ONE (13:45)
[2022-08-29] MEDS ORDERED: LORazepam 2 mg/ml vial ONE (13:47)
[2022-08-29 13:55] LABS: BASOPHILS # (AUTO) 0.1 X10'3 (0-0.2); BASOPHILS % (AUTO) 1.1 % (0-1); EOSINOPHILS # (AUTO) 0.2 X10'3 (0-0.9); EOSINOPHILS % (AUTO) 2.5 % (0-6); HEMATOCRIT 39.8 % (35.0-45.0); HEMOGLOBIN 12.9 g/dl (12.0-16.0); LYMPHOCYTES # (AUTO) 2.4 X10'3 (1.1-4.8); LYMPHOCYTES % (AUTO) 24.8 % (21-51); MEAN CORPUSCULAR HEMOGLOBIN 29.4 PG (27.0-31.0); MEAN CORPUSCULAR HGB CONC 32.5 g/dL (33.0-36.5); MEAN CORPUSCULAR VOLUME 90.3 FL (78-98); MEAN PLATELET VOLUME 9.1 FL (7.4-10.4); MONOCYTES # (AUTO) 0.8 X10'3 (0-0.9); MONOCYTES % (AUTO) 7.8 % (2-12); NEUTROPHILS # (AUTO) 6.3 X10'3 (1.8-7.7); NEUTROPHILS % (AUTO) 63.8 % (42-75); PLATELET COUNT 322 X10'3 (140-440); RED BLOOD COUNT 4.41 X10'6 (4.20-5.60); RED CELL DISTRIBUTION WIDTH 14.9 % (11.5-14.5); WHITE BLOOD COUNT 9.8 X10'3 (4.5-11.0)
--- NOTE | 2022-08-29 14:00 | NUR ---
PT TRIED TO TONIA OUT OF ROOM AND CHARGE AT STAFF- MD ORDERED MEDIACTION AT THIS TIME TO TRY AND CALM PT. SECURITY AT [facility] TO PLACE PT IN RESTRAINTS.
[2022-08-29 14:09] LABS: ALANINE AMINOTRANSFERASE 31 U/L (12-78); ALBUMIN/GLOBULIN RATIO 1.3 (1.1-1.5); ALKALINE PHOSPHATASE 77 IU/L (46-116); ANION GAP 11 (8-16); ASPARTATE AMINO TRANSFERASE 28 U/L (10-37); BILIRUBIN,TOTAL 0.6 MG/DL (0.1-1.0); BLOOD UREA NITROGEN 31 MG/DL (7-18); BUN/CREATININE RATIO 41.3 (6.6-38.0); CALCIUM 9.4 MG/DL (8.5-10.1); CHLORIDE 108 MMOL/L (99-107); CREATININE 0.75 MG/DL (0.40-0.90); ETHANOL < 0.010 GM/DL (0.0-0.010); GLUCOSE 101 MG/DL (70-104); SODIUM 144 MMOL/L (135-145); TOTAL CARBON DIOXIDE 25.5 MMOL/L (24-32); TOTAL PROTEIN 7.1 G/DL (6.4-8.2); eGFR 80 ML/MIN
[2022-08-29 14:13] LABS: POTASSIUM 3.7 MMOL/L (3.5-5.1)
[2022-08-29 14:14] LABS: ACETAMINOPHEN < 2.0 UG/ML (10-30)
--- NOTE | 2022-08-29 17:19 | NUR ---
Patient ambulated from main ER to overflow bed 22, accompanied by security.
--- NOTE | 2022-08-29 17:25 | NUR ---
Patient is calm and cooperative so far. She will probably fall asleep soon.
--- NOTE | 2022-08-29 21:18 | NUR ---
Pt sleeping since start of shift. Can be awakened and semi cooperative with assessment. She is orienteted x4. Denies SI "I only layed in traffic so they would listen to me." Denies A/V/H pr HI/ . Requested diner tray was provided pt would not stay awake long enough to eat it. Dr. Pop here to see pt said let her sleep. Sleeping at this time.
--- NOTE | 2022-08-30 00:02 | NUR ---
Pt sleeping at this time. VS stable see interventions. here to see pt. Pt up independantly to BR back to bed and went to sleep. Addendum: 08/30/22 at 0004 by SHERMAN wrong pt desregard prior note
--- NOTE | 2022-08-30 00:05 | NUR ---
Pt continues to sleep resp even and unlabored. Snores softly at times.
--- NOTE | 2022-08-30 03:48 | NUR ---
Pt continues to sleep resp even and unlabored.
--- NOTE | 2022-08-30 06:30 | NUR ---
Received pt. sleeping in bed at the beginning of the shift, she c/o left ankle pain and required use of FWW and assistance from staff to ambulate to the BR. A urine sample was obtained and sent to lab. Pt. reports she is unable to put any weight on her left foot/ankle and areas are slightly swollen. This was endorsed to Dr. Esteves who ordered a left foot and ankle x-ray, results are pending.
[2022-08-30 07:13] LABS: CLARITY,URINE CLEAR (Clear); COLOR,URINE YELLOW (Yellow); GLUCOSE, URINE NEGATIVE (Neg); KETONES,URINE TRACE mg/dl (Neg); LEUKOCYTE ESTERASE ,URINE NEGATIVE (Neg); NITRITES, URINE NEGATIVE (Neg); OCCULT BLOOD,URINE NEGATIVE (Neg); PH,URINE 5.5 (4.8-8.0); PROTEIN,URINE NEGATIVE (Neg); UA COLLECTION TYPE CLN CATCH MIDSTREAM; UROBILINOGEN,URINE 0.2 E.U/dL (0.2-1.0)
[2022-08-30 07:24] LABS: URINE AMPHETAMINE SCREEN NEGATIVE (Neg); URINE BARBITUATE SCREEN NEGATIVE (Neg); URINE BENZODIAZEPINES SCREEN NEGATIVE (Neg); URINE CANNABINOID SCREEN POSITIVE (Neg); URINE COCAINE SCREEN NEGATIVE (Neg); URINE METHADONE SCREEN NEGATIVE (Neg); URINE OPIATE SCREEN NEGATIVE (Neg); URINE PHENCYCLIDINE SCREEN NEGATIVE (Neg)
[2022-08-30 07:30] LABS: URINE HCG NEGATIVE (NEG)
--- NOTE | 2022-08-30 08:30 | NUR ---
Pt. refused breakfast and is sleeping in bed at this time, rr are even and unlabored.
--- NOTE | 2022-08-30 10:17 | NUR ---
PT. is sleeping at this time, laying on rt. side, rise and fall of chest noted.
--- NOTE | 2022-08-30 11:29 | NUR ---
Pt. reports she does not take any home medications.
[2022-08-30] MEDS ORDERED: NO HOME MEDS (11:33)
--- NOTE | 2022-08-30 11:40 | NUR ---
Attempted to complete 1:1 at bedside, pt. presents as guarded and makes paranoid delusional statements. She states, "I'm pissed off and I have a list of people that need to be fired. I'll leave it up to Blair and Nikhil Whiteside's son." Pt. reports that she feels multiple people want to hurt her. When questioned regarding S/I, pt. denies this and states, "I never wanted to hurt myself, I just wanted to get people's attention." When questioned regarding A/V/MOMIN, pt. refuses to discuss this and covers her head with a blanket.
--- NOTE | 2022-08-30 12:28 | NUR ---
Pt. is laying in bed at this time, she makes frequent body adjustments. Pt. was provided with a snack earlier which she ate 100% of.
--- NOTE | 2022-08-30 14:27 | NUR ---
Pt. is laying in bed using the telephone at this time.
--- NOTE | 2022-08-30 16:06 | NUR ---
Pt. has been accepted at [facility], she will be transferring on Noc shift per CRN.
--- NOTE | 2022-08-30 16:32 | NUR ---
Pt. continues to lay in bed at this time, she will ocassionally whisper to herself and appears to be responding to internal stimuli. She is up at this time to use the BR and continues to use FWW, however is noted to be carrying it with her and is able to bear weight on her left ankle and foot. Pt. states in a slightly agitated and paranoid manner, "I need to get away from all these shitty people." Will continue to monitor closely.
--- NOTE | 2022-08-30 17:53 | NUR ---
Pt. is sitting up in bed quietly at this time, she appears to be responding to internal stimuli at intervals.
--- NOTE | 2022-08-30 18:58 | NUR ---
The patient is refusing nursing assessment. She is quite paranoid and delusional and reported believes staff have "switched babies" When ever this staff passed by she would state "fuck you" The patient reportedly has been refusing medications and she really is not being violent or threatening so she does not meet criteria for IM medications. She will be transported to [facility] later this evening and the charge nurse was made aware of patient paranoia and agitation.
[2022-08-30] MEDS ORDERED: OLANZapine 5mg rapidly disint. tablet PO ONE (21:25)
[2022-08-30] MEDS ORDERED: traZODone 50mg tablet PO PRN (21:30)
[2022-08-30] MEDS ORDERED: mag hydrox/Alum hydrox/simeth 30ml oral suspension PO PRN (22:30)
[2022-08-30] MEDS ORDERED: acetaminophen 325mg tablet PO PRN ×2 (22:30)
[2022-08-30] MEDS ORDERED: magnesium hydroxide 30ml (MOM) UD suspension PO PRN (22:30)
[2022-08-30] MEDS ORDERED: loperamide 2mg capsule PO PRN (22:30)
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
[2022-08-31 07:57] LABS: CHOL/HDL RATIO 2.3 (0.00-4.99); CHOLESTEROL 159 MG/DL (0-200); HDL CHOLESTEROL 68 MG/DL (35-60); LDL CHOLESTEROL 85 MG/DL (50-100); TRIGLYCERIDES 29 MG/DL (20-135)
[2022-08-31 08:00] VITALS: BP 148/68
[2022-08-31 08:14] LABS: HEMOGLOBIN A1C 5.6 % (4.5-6.2)
[2022-08-31] MEDS ORDERED: LIDOcaine 5% patch TP ONE (12:10)
[2022-08-31] MEDS ORDERED: olanzapine 10mg tablet PO PRN (13:55)
[2022-08-31] MEDS ORDERED: amitriptyline 25mg tablet PO PRN (13:55)
[2022-08-31] MEDS ORDERED: OLANZapine 2.5MG tablet PO ONE (13:55)
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
[2022-08-31] MEDS: DICLOFENAC SODIUM 1% gel 1 APPLIC APPLIC TP SCH (19:42)
[2022-08-31 20:00] VITALS: BP 99/66
[2022-08-31] MEDS: LORazepam 0.5 MG tablet PO PRN (21:27)
--- NOTE | 2022-08-31 22:51 | NUR ---
Nursing Progress Note: Vandana Problem: Pt is on 5150 for DTS due to being found lying in the middle of the road on the free[place] on ramp telling law enforcement that she wants to be ran over. Pt c/o left ankle pain/swelling. X Ray has been completed in the ER. Interventions: Medication administration, 1:1 MH assessment, maintained a safe and supportive environment, provided clear and simple instructions, provided encouragement regarding performance of ADLs, monitored behaviors and maintained clear boundaries, maintained Q15 minute safety checks. Response: Pt was in bed napping at change of shift. Pt tolerated assessment for a brief time then answers "I just want to get out of here and stop having people ask me all these fucking questions!" Pt was encouraged to attend snack and states she doesnt want to be around people. "I'm not going out there and dealing with all those assholes!" Pt is polite when asking for sleep meds but refuses Elavil stating "I only want meds that are for sleep and nothing else." Pt was provided education on medications and replies "I know, Im not taking that." Pt took Ativan for anxiety and went to sleep. Plan: Pt. continues to require medication adjustments and monitoring in a safe and therapeutic environment
[2022-09-01 08:00] VITALS: BP 107/80
[2022-09-01] MEDS ORDERED: olanzapine 10mg tablet PO SCH (08:00)
[2022-09-01] MEDS: DICLOFENAC SODIUM 1% gel 1 APPLIC APPLIC TP SCH ×2 (08:39→20:00)
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
[2022-09-01 20:00] VITALS: BP 123/73
[2022-09-01] MEDS: olanzapine 10mg tablet PO SCH (20:35)
--- NOTE | 2022-09-02 05:34 | NUR ---
Nursing Progress Note: Vandana Problem: Pt is on 5150 for DTS due to being found lying in the middle of the road on the free[place] ramp telling law enforcement that she wants to be ran over. Pt c/o left ankle pain/swelling. X Ray has been completed in the ER. Interventions: Medication administration, 1:1 MH assessment, maintained a safe and supportive environment, provided clear and simple instructions, provided encouragement regarding performance of ADLs, monitored behaviors and maintained clear boundaries, maintained Q15 minute safety checks. Response: Patient was received sitting in bed listening to music. Patient left room due to roommate being loud and dramatic. Patient was found in community room watching tv when given night medications which she took without issue. Patient tried once again to return to room but roommate continued to yell and act out rolling all over floor and in bathroom. Patient was moved to other end of unit so she could get some sleep. Plan: Pt. continues to require medication adjustments and monitoring in a safe and therapeutic environment
[2022-09-02 08:00] VITALS: BP 111/71
[2022-09-02] MEDS: DICLOFENAC SODIUM 1% gel 1 APPLIC APPLIC TP SCH ×2 (08:03→20:43)
--- NOTE | 2022-09-02 16:46 | NUR ---
Nursing Progress Note: Vandana Problem: Pt is on 5150 for DTS due to being found lying in the middle of the road on the free[place] ramp telling law enforcement that she wants to be ran over. Pt c/o left ankle pain/swelling. X Ray has been completed in the ER. Interventions: Medication administration, 1:1 MH assessment, maintained a safe and supportive environment, provided clear and simple instructions, provided encouragement regarding performance of ADLs, monitored behaviors and maintained clear boundaries, maintained Q15 minute safety checks. Response: Pt. received asleep in her new room. She awoke for 1:1 assessment and denies SI, HI, and refused to answer questions re A/VH instead reported I dont want to talk about that with you, when I hear voices like telling me where the body is buried I write them down, because they are real she pointed over to a white folder, and stated Ill give them to Blair She reported the room change is much better She was hesitant to eat her meals in the dining room, presenting as paranoid stating I know hes in there Pt. denies needing a PRN for anxiety. She isolated in her room for most of the shift. She has fair hygiene, wearing street clothes and a scrub top, and her hair is brushed. She was observed responding to IS this morning, but appears less agitated compared to yesterday. Plan: Pt. continues to require medication adjustments and monitoring in a safe and therapeutic environment
--- NOTE | 2022-09-02 17:00 | NUR ---
Pt was placed on a 5250 today, she signed the hold notice and was given a copy of it.
[2022-09-02 20:00] VITALS: BP 127/91
[2022-09-02] MEDS: olanzapine 10mg tablet PO SCH (20:42)
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
[2022-09-03] MEDS: DICLOFENAC SODIUM 1% gel 1 APPLIC APPLIC TP SCH ×2 (07:14→20:50)
[2022-09-03 07:34] VITALS: BP 120/83
--- NOTE | 2022-09-03 17:21 | NUR ---
Nursing Progress Note: Problem: Pt is on 5150 for DTS due to being found lying in the middle of the road on the free[place] ramp telling law enforcement that she wants to be ran over. Pt c/o left ankle pain/swelling. X Ray has been completed in the ER. Interventions: Medication administration, 1:1 MH assessment, maintained a safe and supportive environment, provided clear and simple instructions, provided encouragement regarding performance of ADLs, monitored behaviors and maintained clear boundaries, maintained Q15 minute safety checks. Response: Met with patient this AM at the bedside. She is restless, anxious, making lots of notes on her copy of her 5250. Spent some time answering patients questions about the hearing process taking place on Monday. She presents as guarded while being asked questions, and becomes agitated when asked further about her paranoid thoughts of being followed. They're not just thoughts! Lynette already told you more than Lynette told a lot of people. When asked about her last BM, she states I go to the bathroom every time shitty people are around me, so that's a lot. I've gotten ride of a lot of people already, but there are hundreds". She talks about the militia being after her and being followed no matter where she goes. Pt later requested and was given a Patients Rights handbook, then came to the nurses station demanding her money to buy a real hairbrush. Told patient that the brush she has is the only ones available at the hospital, to which she became visibly upset and responded My roommate has one, so Ill wait right here while you look for one. Pt also requested a writ of Habeas Corpus form and was given one. Later in the shift, pt presents in a good mood, smiling, listening to headphones, positive interactions with staff. Plan: Pt requires continued hospitalization d/t paranoia and lack of insight
[2022-09-03 20:00] VITALS: BP 109/82
[2022-09-03] MEDS: olanzapine 10mg tablet PO SCH (20:49)
[2022-09-03] MEDS: LORazepam 0.5 MG tablet PO PRN (21:10)
--- NOTE | 2022-09-04 04:22 | NUR ---
Nursing Progress Note: Problem: Pt is on 5150 for DTS due to being found lying in the middle of the road on [place] free[place] ramp telling law enforcement that she wants to be ran over. Pt c/o left ankle pain/swelling. X Ray has been completed in the ER. Interventions: Medication administration, 1:1 MH assessment, maintained a safe and supportive environment, provided clear and simple instructions, provided encouragement regarding performance of ADLs, monitored behaviors and maintained clear boundaries, maintained Q15 minute safety checks. Response: Pt sitting in room writing notes and listening to music on the headphones. Pt denies wanting to hurt self and others. Pt denies AH/VH. She states I have never ever had any of that and I dont want to answer any more questions. HS meds administered. When asked how she is doing pt states Im good. Pt having delusional statements oh my fianc just came on the, its the truth he is a studio sales associate. Would you like to listen to him sing? Pt asked for sleep aid stated that she needs it to help her sleep. Informed pt there is no orders for sleep aid, pt requested PRN Ativan 0.5mg administered @ 2109 for anxiety. Pt up walking the halls until 2300. New phone consent in chart, pt does not want any calls from her mother Cheryl Mahoney and to ask her first for any other calls. Plan: Pt. continues to require medication adjustments and monitoring in a safe and therapeutic environment
--- NOTE | 2022-09-04 07:40 | NUR ---
Initial: Pt admitted w/ psychosis per EMR. Currently on Regular diet initially w/ 0-25% intake of meals though now up to 75-100%. Pt will need to consume approximately 60% of meals to be meeting est needs. [facility] 09/03. No nutrition intervention implemented at this time, will continue to monitor. Recs: 1. Continue Regular diet as tolerated 2. Bowel care per rx 3. Weekly wts Addendum: 09/04/22 at [address] Amended: Links added.
[2022-09-04 08:00] VITALS: BP 106/85
[2022-09-04] MEDS: DICLOFENAC SODIUM 1% gel 1 APPLIC APPLIC TP SCH ×2 (09:24→20:41)
[2022-09-04] MEDS: LIDOcaine 5% patch TP SCH (09:43)
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
[2022-09-04 20:00] VITALS: BP 130/74
[2022-09-04] MEDS: LORazepam 0.5 MG tablet PO PRN (20:40)
[2022-09-04] MEDS: olanzapine 10mg tablet PO SCH (20:40)
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
[2022-09-05] MEDS: LORazepam 0.5 MG tablet PO PRN (02:31)
[2022-09-05] MEDS: LIDOcaine 5% patch TP SCH (08:00)
[2022-09-05 08:02] VITALS: BP 115/82
[2022-09-05] MEDS: DICLOFENAC SODIUM 1% gel 1 APPLIC APPLIC TP SCH (09:03)
--- NOTE | 2022-09-05 16:15 | NUR ---
5250 released for DTS
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
[2022-09-05] MEDS ORDERED: OLAN10TA73 PO (17:46)
[2022-09-05] MEDS ORDERED: DICL20GE TP (17:46)
[2022-09-05 20:13] VITALS: BP 117/78
--- NOTE | 2022-09-05 21:14 | NUR ---
DISCHARGE NOTE: Patient hold not upheld in hearing today. Patient discharged by Dr Marcelino. Patient excited to go home to cats and visit her horse. Patient sent home by cab all belongings inventoried. Patient vital signs at time of discharge. 97.8, 86, 16, 98%, 106/77
== END 2022-09-05 21:05 | disposition home or self-care (01) | DRG 885 ==
LOC: ER 10:48 → ED HOLD 08-30 16:00 → ADULT MH 08-30 21:16
PROVIDERS: ADMIT Psychiatry & Neurology Psychiatry; ATTEND Psychiatry & Neurology Psychiatry
DX: F29 Unspecified psychosis not due to a substance or known physiological condition (principal); Z20.822 Contact with and (suspected) exposure to COVID-19; M85.872 Other specified disorders of bone density and structure, left ankle and foot; M79.671 Pain in right foot; E03.9 Hypothyroidism, unspecified; Z87.828 Personal history of other (healed) physical injury and trauma; Z88.8 Allergy status to other drugs, medicaments and biological substances; Z79.899 Other long term (current) drug therapy
CPT/HCPCS: 36415; 73610; 73630; 80053; 80061; 80305; 80320; 80329; 81003; 81025; 83036; 84443; 84481; 85025; 87081; 87811; 96372; 99285; C2617; J1630; J2060

== ENCOUNTER 2022-09-16 16:44 | Emergency (ER) | payer MEDICARE ==
[~2022-09-16] VITALS: Ht 165.1 cm; Wt 54.5 kg
[~2022-09-16 16:44] MED LIST changes: +DICL20GE TP; -LEVO100T9 PO; +OLAN10TA73 PO; -OLAN15TA20 PO; -OLAN2.5T28 PO; -PRAZ1CAP5 PO
[2022-09-16 20:51] LABS: BASOPHILS # (AUTO) 0.1 X10'3 (0-0.2); BASOPHILS % (AUTO) 1.1 % (0-1); EOSINOPHILS # (AUTO) 0.4 X10'3 (0-0.9); EOSINOPHILS % (AUTO) 4.4 % (0-6); HEMATOCRIT 36.7 % (35.0-45.0); HEMOGLOBIN 12.2 g/dl (12.0-16.0); LYMPHOCYTES # (AUTO) 3.1 X10'3 (1.1-4.8); LYMPHOCYTES % (AUTO) 33.8 % (21-51); MEAN CORPUSCULAR HGB CONC 33.1 g/dL (33.0-36.5); MEAN CORPUSCULAR VOLUME 90.5 FL (78-98); MEAN PLATELET VOLUME 8.8 FL (7.4-10.4); MONOCYTES # (AUTO) 0.8 X10'3 (0-0.9); MONOCYTES % (AUTO) 9.2 % (2-12); NEUTROPHILS # (AUTO) 4.7 X10'3 (1.8-7.7); NEUTROPHILS % (AUTO) 51.5 % (42-75); PLATELET COUNT 296 X10'3 (140-440); RED BLOOD COUNT 4.06 X10'6 (4.20-5.60); RED CELL DISTRIBUTION WIDTH 15.1 % (11.5-14.5)
[2022-09-16 21:03] LABS: ALANINE AMINOTRANSFERASE 65 U/L (12-78); ALBUMIN 3.7 G/DL (3.4-5.0); ALBUMIN/GLOBULIN RATIO 1.2 (1.1-1.5); ALKALINE PHOSPHATASE 89 IU/L (46-116); ANION GAP 5 (8-16); ASPARTATE AMINO TRANSFERASE 47 U/L (10-37); BILIRUBIN,TOTAL 0.2 MG/DL (0.1-1.0); BLOOD UREA NITROGEN 25 MG/DL (7-18); BUN/CREATININE RATIO 27.2 (6.6-38.0); CALCIUM 8.9 MG/DL (8.5-10.1); CHLORIDE 106 MMOL/L (99-107); CREATININE 0.92 MG/DL (0.40-0.90); GLUCOSE 93 MG/DL (70-104); POTASSIUM 4.5 MMOL/L (3.5-5.1); SODIUM 140 MMOL/L (135-145); TOTAL CARBON DIOXIDE 29.3 MMOL/L (24-32); TOTAL PROTEIN 6.9 G/DL (6.4-8.2); eGFR 63 ML/MIN
--- NOTE | 2022-09-16 22:08 | NUR ---
Patient brought to ED 24 from [facility]. Patient states I feel like killing myself, plan to drive car off [address] or overdose. Patient desires admission. Patient states she can't afford Rx medications and chooses not to take them. 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
--- NOTE | 2022-09-16 22:46 | NUR ---
Patient has multiple cannaboid type non rx medications. Pharmacy doesn't store this type of medication. The advise to call security. The security staff will take possetion when inventory is complete.
--- NOTE | 2022-09-16 22:51 | NUR ---
[facility] Urine was sent to lab for this patient.
--- NOTE | 2022-09-16 22:51 | NUR ---
Patient was given a sandwich at her request.
[2022-09-16 23:05] LABS: URINE HCG NEGATIVE (NEG)
[2022-09-16 23:19] LABS: URINE AMPHETAMINE SCREEN NEGATIVE (Neg); URINE BARBITUATE SCREEN NEGATIVE (Neg); URINE BENZODIAZEPINES SCREEN NEGATIVE (Neg); URINE CANNABINOID SCREEN POSITIVE (Neg); URINE COCAINE SCREEN NEGATIVE (Neg); URINE METHADONE SCREEN NEGATIVE (Neg); URINE OPIATE SCREEN NEGATIVE (Neg); URINE PHENCYCLIDINE SCREEN NEGATIVE (Neg)
--- NOTE | 2022-09-16 23:25 | NUR ---
breaking primary RN for lunch patient in bed eyes closed rr even un labored no observable s/s of acute stress at this time
[2022-09-16 23:29] LABS: CLARITY,URINE SLIGHTLY CLOUDY (Clear); COLOR,URINE YELLOW (Yellow); GLUCOSE, URINE NEGATIVE (Neg); KETONES,URINE NEGATIVE (Neg); LEUKOCYTE ESTERASE ,URINE NEGATIVE (Neg); NITRITES, URINE NEGATIVE (Neg); OCCULT BLOOD,URINE NEGATIVE (Neg); PROTEIN,URINE NEGATIVE (Neg); UROBILINOGEN,URINE 0.2 E.U/dL (0.2-1.0)
[2022-09-16 23:34] LABS: UA COLLECTION TYPE CLN CATCH MIDSTREAM
[2022-09-16 23:37] LABS: BACTERIA,URINE 3+ /HPF (Neg); MUCUS STRANDS NONE SEEN /LPF (Neg); RBC,URINE NONE SEEN /HPF (0-2); SQUAMOUS EPITHELIAL CELL,UR FEW /LPF (FEW)
--- NOTE | 2022-09-17 00:31 | NUR ---
Security has secureded patients THC medication products. The patient was made aware this would be the case.
[2022-09-17] MEDS ORDERED: hydrOXYzine 25 MG tablet PO ONE ×2 (02:15→20:30)
--- NOTE | 2022-09-17 02:18 | NUR ---
Patient was up to void. Upon returning to bed she requested sleep medication. PO Atarax 25 mg given.
--- NOTE | 2022-09-17 06:26 | NUR ---
pt valuables were taken from belongings bags and placed in the registration safe, valuables consisted of phone and wallet.
--- NOTE | 2022-09-17 06:44 | NUR ---
raisa sent pt packet to [facility]
[2022-09-17] MEDS ORDERED: LIDOcaine 5% patch TP SCH (13:00)
[2022-09-17] MEDS ORDERED: LIDOcaine 5% patch TP ONE (13:00)
[2022-09-17] MEDS ORDERED: loperamide 2mg capsule PO ONE (18:15)
--- NOTE | 2022-09-17 20:33 | NUR ---
refused tylenol and motrin for back pain, order for Atarax for sleep recived
--- NOTE | 2022-09-18 02:46 | NUR ---
pt ambulated to bathroom w/o difficulty
[2022-09-18] MEDS: normal saline 1000ml 1,000 ML IV SCH ×6 (03:30→23:35)
--- NOTE | 2022-09-18 06:31 | NUR ---
Patient awake and laying in bed. No distress observed. Continue to monitor.
[2022-09-18] MEDS: lactose-reduced food (Ensure High Protein) 237ml bottle PO SCH ×3 (08:00→18:00)
--- NOTE | 2022-09-18 08:22 | NUR ---
Patient up to BR, steady gait. No distress observed. Continue to monitor.
--- NOTE | 2022-09-18 09:10 | NUR ---
Patient only ate the oatmeal of her breakfast. Patient is awaiting Protein shake which was not sent up with her breakfast. RN ordered as Late Meal. No distress observed. Continue to monitor.
[2022-09-18] MEDS: LIDOcaine 5% patch TP SCH (10:18)
--- NOTE | 2022-09-18 10:26 | NUR ---
Patient watching T.V. No distress observed. RN called and left message for kitchen staff to sent up patient's protein drink. Continue to monitor.
--- NOTE | 2022-09-18 11:34 | NUR ---
Patient with nausea and emesis x 1. Dr. Graves ordered 4mg Zofran q 4 PRN. Continue to monitor.
--- NOTE | 2022-09-18 11:40 | NUR ---
Patient had a bout with diarrhea. Patient also had diarrhea last night and received loperimide. Continue to monitor.
[2022-09-18] MEDS: ondansetron 4mg rapidly disintigrating tab PO PRN ×2 (11:44→18:15)
[2022-09-18] MEDS ORDERED: diphenhydrAMINE 50 mg/ml inj IM ONE (11:55)
[2022-09-18] MEDS ORDERED: metoclopramide 5 mg/ml inj IM ONE (11:55)
[2022-09-18] MEDS ORDERED: LORazepam 2 mg/ml vial IM ONE (13:35)
[2022-09-18] MEDS ORDERED: proMETHazine 25mg rectal suppository RC ONE (13:35)
--- NOTE | 2022-09-18 13:40 | NUR ---
Patient continues to vomit. RN spoke with Dr Graves and will attempt a Phenergan suppository and I.M. Ativan. . Also getting an EKG to r/o cardiac. However, there are 2 staff members with the same symptoms. One of which already went home sick. Continue to monitor.
--- NOTE | 2022-09-18 14:32 | NUR ---
Patient appears to be sleeping. No distress observed. Continue to monitor.
[2022-09-18] MEDS ORDERED: loperamide 2mg capsule PO ONE (17:55)
--- NOTE | 2022-09-18 18:45 | NUR ---
Pt laying in bed at change of shift. Pt having N/V and has already been given prn zofran.
--- NOTE | 2022-09-18 19:30 | NUR ---
Pt had episode of diarrhea, pt was given clean pants
[2022-09-18] MEDS ORDERED: LORazepam 1 MG tablet PO PRN (20:40)
[2022-09-18] MEDS: hydrOXYzine 25 MG tablet PO PRN (20:57)
--- NOTE | 2022-09-18 21:13 | NUR ---
Pt is laying in bed c/o noise and being too hot. Pt was given ear plugs and offered wash cloth to cool off. Pt given prn atarax for anxiety. Pt states she is not currently having nausea.
--- NOTE | 2022-09-18 21:35 | NUR ---
pt awake yelling at other patients to "shut up." Pt is becoming agitated and cussing because she can't sleep.
--- NOTE | 2022-09-18 22:55 | NUR ---
Pt is laying in bed on her back asleep. [id number]
--- NOTE | 2022-09-19 00:25 | NUR ---
Pt laying on her right side rr even and unlabored
[2022-09-19] MEDS: normal saline 1000ml 1,000 ML IV SCH ×4 (00:35→03:33)
--- NOTE | 2022-09-19 02:43 | NUR ---
Pt woke up and walked to the bathroom without a top on. Redirected pt that she needs to wear a top and gave her another scrub top. Pt used the toilet and returned to bed.
[2022-09-19] MEDS: ondansetron 4mg rapidly disintigrating tab PO PRN (02:52)
[2022-09-19] MEDS: hydrOXYzine 25 MG tablet PO PRN (02:52)
--- NOTE | 2022-09-19 04:43 | NUR ---
Pt laying in bed asleep rr even and unlabored.
--- NOTE | 2022-09-19 06:34 | NUR ---
Patient sleeping supnine. No distress observed. Continue to monitor
[2022-09-19] MEDS: lactose-reduced food (Ensure High Protein) 237ml bottle PO SCH ×2 (08:00→13:00)
--- NOTE | 2022-09-19 08:35 | NUR ---
Patient had diarrhea X1. No emesis. No distress. Continue to monitor.
--- NOTE | 2022-09-19 10:22 | NUR ---
Patient watching T.V. No distress observed. Continue to monitor.
[2022-09-19] MEDS: LIDOcaine 5% patch TP SCH (11:00)
[2022-09-19] MEDS ORDERED: chloestyramine/aspartame 4gm packet PO ONE (11:35)
--- NOTE | 2022-09-19 11:55 | NUR ---
RN gave patient Questran x 1. Continue to monitor.
[2022-09-19] MEDS ORDERED: loperamide 2mg capsule PO ONE ×2 (14:15→15:45)
--- NOTE | 2022-09-19 14:17 | NUR ---
Patient has had 2 bouts of diarrhea since Questran dose. Patient states immodium worked for 12 hours yesterday. RN spoke to Dr Benitez who ordered immodium. Continue to monitor.
--- NOTE | 2022-09-19 16:19 | NUR ---
ETA [id number]
--- NOTE | 2022-09-19 17:03 | NUR ---
Pt sitting on bed watching T.V.
--- NOTE | 2022-09-19 17:45 | NUR ---
DISCHARGE NOTE Patient left unit at 1740. Pt was escorted to vehicle with route sales delivery driver and security. Pt was transported to [facility] via [facility] route sales delivery driver. Pt was A&Ox4. Pt left with all personal belongings. Pt's white Reyes Purdum is parked in [facility] parking lot.
[2022-09-19 17:57] VITALS: BP 120/78
[2022-09-19] MEDS ORDERED: sulfamethoxazole/trimethoprim DS (800/160mg) tablet PO SCH (20:00)
== END 2022-09-19 17:40 ==
LOC: ER 16:44
DX: R45.851 Suicidal ideations (principal); Z20.822 Contact with and (suspected) exposure to COVID-19; E03.9 Hypothyroidism, unspecified; Z59.00 Homelessness unspecified; Z88.6 Allergy status to analgesic agent
CPT/HCPCS: 36415; 80053; 80305; 81001; 81025; 84443; 85025; 87077; 87088; 87186; 87811; 96372; 99285; J7030; Q0177

== ENCOUNTER 2022-12-08 21:57 | Inpatient (IN) | payer MEDICARE ==
[~2022-12-08] VITALS: Ht 165.1 cm; Wt 60.9 kg
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
[2022-12-08 16:17] LABS: BASOPHILS # (AUTO) 0.1 X10'3 (0-0.2); BASOPHILS % (AUTO) 1.1 % (0-1); EOSINOPHILS # (AUTO) 0.1 X10'3 (0-0.9); EOSINOPHILS % (AUTO) 1.9 % (0-6); HEMATOCRIT 38.9 % (35.0-45.0); HEMOGLOBIN 12.5 g/dl (12.0-16.0); LYMPHOCYTES # (AUTO) 2.1 X10'3 (1.1-4.8); LYMPHOCYTES % (AUTO) 29.3 % (21-51); MEAN CORPUSCULAR HGB CONC 32.1 g/dL (33.0-36.5); MEAN CORPUSCULAR VOLUME 87.3 FL (78-98); MEAN PLATELET VOLUME 9.3 FL (7.4-10.4); MONOCYTES # (AUTO) 0.6 X10'3 (0-0.9); MONOCYTES % (AUTO) 8.6 % (2-12); NEUTROPHILS # (AUTO) 4.3 X10'3 (1.8-7.7); NEUTROPHILS % (AUTO) 59.1 % (42-75); PLATELET COUNT 331 X10'3 (140-440); RED BLOOD COUNT 4.45 X10'6 (4.20-5.60); RED CELL DISTRIBUTION WIDTH 15.1 % (11.5-14.5); WHITE BLOOD COUNT 7.2 X10'3 (4.5-11.0)
[2022-12-08 16:34] LABS: ALANINE AMINOTRANSFERASE 20 U/L (12-78); ALBUMIN 4.4 G/DL (3.4-5.0); ALBUMIN/GLOBULIN RATIO 1.3 (1.1-1.5); ALKALINE PHOSPHATASE 86 IU/L (46-116); ANION GAP 8 (8-16); ASPARTATE AMINO TRANSFERASE 19 U/L (10-37); BILIRUBIN,TOTAL 0.6 MG/DL (0.1-1.0); BLOOD UREA NITROGEN 27 MG/DL (7-18); BUN/CREATININE RATIO 34.6 (6.6-38.0); CALCIUM 9.4 MG/DL (8.5-10.1); CHLORIDE 107 MMOL/L (99-107); CREATININE 0.78 MG/DL (0.40-0.90); GLUCOSE 86 MG/DL (70-104); POTASSIUM 3.8 MMOL/L (3.5-5.1); SODIUM 143 MMOL/L (135-145); TOTAL CARBON DIOXIDE 27.7 MMOL/L (24-32); TOTAL PROTEIN 7.7 G/DL (6.4-8.2); eGFR 76 ML/MIN
[2022-12-08 17:10] LABS: ETHANOL < 0.010 GM/DL (0.0-0.010)
--- NOTE | 2022-12-08 19:43 | NUR ---
INFORMED THAT THE PATIENT HAS LEFT AND SO DAMARIS THE ELECTRIC INSTALLER WAS NOTIFIED.
--- NOTE | 2022-12-08 19:47 | NUR ---
PARISA NOTIFIED OF PATIENT LEAVING THE BUILDING, AND THAT A 1799 WAS WRITTEN.
--- NOTE | 2022-12-08 22:12 | NUR ---
registration states that the patient showed back up into the lobby, so pt taken to room 12.
[2022-12-08 23:11] LABS: URINE HCG NEGATIVE (NEG)
[2022-12-08 23:12] LABS: CLARITY,URINE CLOUDY (Clear); COLOR,URINE YELLOW (Yellow); GLUCOSE, URINE NEGATIVE (Neg); KETONES,URINE 15 mg/dl (Neg); LEUKOCYTE ESTERASE ,URINE TRACE (Neg); NITRITES, URINE POSITIVE (Neg); OCCULT BLOOD,URINE NEGATIVE (Neg); PH,URINE 5.5 (4.8-8.0); PROTEIN,URINE NEGATIVE (Neg); UROBILINOGEN,URINE 0.2 E.U/dL (0.2-1.0)
[2022-12-08 23:14] LABS: UA COLLECTION TYPE CLN CATCH MIDSTREAM
[2022-12-08 23:25] LABS: BACTERIA,URINE 4+ /HPF (Neg); SQUAMOUS EPITHELIAL CELL,UR MODERATE /LPF (FEW)
[2022-12-08] MEDS ORDERED: amox tr/potassium clavulanate 875/125mg TAB PO ONE (23:25)
[2022-12-08 23:26] LABS: RBC,URINE 0-2 /HPF (0-2); WBC CLUMPS,URINE FEW /HPF (NEGATIVE); WBC,URINE 50-100 /HPF (0-4)
[2022-12-08 23:27] LABS: URINE AMPHETAMINE SCREEN NEGATIVE (Neg); URINE BARBITUATE SCREEN NEGATIVE (Neg); URINE BENZODIAZEPINES SCREEN NEGATIVE (Neg); URINE CANNABINOID SCREEN POSITIVE (Neg); URINE COCAINE SCREEN NEGATIVE (Neg); URINE METHADONE SCREEN NEGATIVE (Neg); URINE OPIATE SCREEN NEGATIVE (Neg); URINE PHENCYCLIDINE SCREEN NEGATIVE (Neg)
--- NOTE | 2022-12-08 23:56 | NUR ---
PT ON THE GURNEY IN ER ROOM 12. THE PT HAS BEEN PLACED IN GREEN SCRUBS AND THE ROOM HAS BEEN CLEARED. THE PT IS PARANOID AND SUSPICIOUS OF THE CARE STAFF IS PROVIDING. THE PT IS UNABLE TO ANSWER QUESTIONS APPROPRIATLY AND IS CONFUSED TO WHERE SHE IS BUT IS ABLE TO BE REORIENTED ANDREDIRECTED EASILY. THE PT IS RESTING AT THIS TIME.
--- NOTE | 2022-12-09 02:31 | NUR ---
PT RESTING IN BED. PT APPEARS TO BE ASLEEP. NO DISTRESS OBSERVED AT THIS TIME. RR ARE EQUAL AND UNLABORED.
--- NOTE | 2022-12-09 03:50 | NUR ---
PT CONTINUES TO SLEEP ON THE GURNEY. RR EQUAL AND UNLABORED. NO DISTRESS OBSERVED.
--- NOTE | 2022-12-09 05:46 | NUR ---
PT ASLEEP ON GURNEY IN ER ROOM 12. NO DISTRESS OBSERVED AT THIS TIME.
--- NOTE | 2022-12-09 07:39 | NUR ---
Phone and wallet placed in safe with registration. Remaining belongings (clothes, hat, plastic sheets finishing supervisor and cord, boots) labeled in 2 bags and placed in locked closet in overflow.
--- NOTE | 2022-12-09 08:03 | NUR ---
Pt reporting headache, requesting advil. RN notified Dr. Abarca. Per , OK to order ibuprofen per verbal order. RN ordered 600 mg ibuprofen via [facility].
[2022-12-09] MEDS ORDERED: ibuprofen 200mg tablet PO ONE ×2 (08:05→17:45)
[2022-12-09] MEDS: amox tr/potassium clavulanate 875/125mg TAB PO SCH ×2 (08:10→17:30)
--- NOTE | 2022-12-09 09:18 | NUR ---
Patient ambulated to bed 24 from main ER accompanied by JOHNNY Collier and .
--- NOTE | 2022-12-09 11:00 | NUR ---
Patient has been asleep since arriving on the unit. No s/sx of distress.
--- NOTE | 2022-12-09 12:15 | NUR ---
Patient eating her lunch meal on the side of her bed.
--- NOTE | 2022-12-09 14:10 | NUR ---
Patient in the supine position, appears to be asleep. No s/sx of distress.
--- NOTE | 2022-12-09 15:01 | NUR ---
Patient does not have a record of mental illness before 2021. In April visit's H&P, patient mentioned to having an AVM. She went back and forth whether she did or not. [facility] believes that if she has an AVM, her paranoia and psychosis may be from that, instead of mental illness. Order received from SIRENA Barney for head CT to r/o AVM or TBI.
[2022-12-09] MEDS ORDERED: iohexol 350MG/ML 100ml bottle IV ONE (16:10)
--- NOTE | 2022-12-09 16:27 | NUR ---
Patient back from CT.
--- NOTE | 2022-12-09 16:59 | NUR ---
Patient up to the bathroom then back to bed.
--- NOTE | 2022-12-09 18:33 | NUR ---
PT RESTING IN BED WITH THE BLANKETS PULLED UP. PT HAS NOT EATEN THE DINNER THAT WAS GIVEN TO HER. PT DOES NOT APPEAR TO BE IN ANY DISTRESS AT THIS TIME.
--- NOTE | 2022-12-09 19:45 | NUR ---
PT IS CONTINUING TO REST IN HER BED WITH THE BLANKETS PULLED UP. PT DOES NOT APPEAR TO BE IN DISTRESS AT THIS TIME.
--- NOTE | 2022-12-09 22:15 | NUR ---
PT CONTINUES TO SLEEP AT THIS TIME. THE RR ARE EQUAL AND UNLABORED.
--- NOTE | 2022-12-09 23:58 | NUR ---
PT CONTINUES TO SLEEP IN THE BED WITH THE BLANKETS PULLED UP. RR ARE EQUAL AND UNLABORED.
--- NOTE | 2022-12-10 01:01 | NUR ---
PT CONTINUES TO SLEEP IN THE BED. RR ARE EQUAL AND UNLABORED.
--- NOTE | 2022-12-10 02:38 | NUR ---
PT IS ASLEEP IN THE BED WITH THE BLANKETS PULLED UP. NO DISTRESS OBSERVED AT THIS TIME.
--- NOTE | 2022-12-10 03:30 | NUR ---
PT IS RESTING IN BED QUIETLY WITH EYES CLOSED. NO DISTRESS IS OBSERVED.
--- NOTE | 2022-12-10 04:37 | NUR ---
PT APPEARS TO BE SLEEPING AT THIS TIME. RR ARE EQUAL AND UNLABORED.
--- NOTE | 2022-12-10 05:12 | NUR ---
Patient is sleeping quietly, no distress.
--- NOTE | 2022-12-10 05:12 | NUR ---
Partha rivera in [facility] - 12/10/22 at 0512 by CHRISTI Patient is sleeping quietly, no distress.
--- NOTE | 2022-12-10 05:53 | NUR ---
PT IS SLEEPING QUIETLY IN THE BED. NO DISTRESS OBSERVED.
--- NOTE | 2022-12-10 07:16 | NUR ---
Received Pt in bed sleeping w/o distress at this time.
[2022-12-10] MEDS: amox tr/potassium clavulanate 875/125mg TAB PO SCH ×2 (08:30→17:30)
--- NOTE | 2022-12-10 09:02 | NUR ---
Pt ate breakfast and returned to bed. Pt refused AM Augmentin stating "I can clear that up myself". Pt speech is pressured and demanding at times.
--- NOTE | 2022-12-10 11:16 | NUR ---
Pt seen by [facility] and placed on 5150 hold. Pt up to bathroom and brush teeth. Pt in bed resting and in no distress at this time.
--- NOTE | 2022-12-10 13:40 | NUR ---
Pt in bed sleeping w/o distress at this time.
--- NOTE | 2022-12-10 15:29 | NUR ---
Pt in bed sleeping w/o distress at this time.
--- NOTE | 2022-12-10 16:58 | NUR ---
Pt up to bathroom and returned to bed and remains there resting.
--- NOTE | 2022-12-10 18:10 | NUR ---
Pt ate dinner and thanked staff. Pt was requesting Voltaren Gel to apply to lower back hip region. will pass on to next shift.
--- NOTE | 2022-12-11 00:13 | NUR ---
Pt sleeping at this time was awake at start of shift. Pt is confused does not rember why she is here. Denies SI/HI A/V/H. Pt pleasant and cooperative except she refused to take ordered Augmentin. Pt changed her mind about Volteran cream she had requested on day shift and wanted Ibuprofen. offered Tylenol which pt said causes Autisim so she declined. Pt went back to sleep is sleeping at this time.
--- NOTE | 2022-12-11 01:07 | NUR ---
Pt laying in bed eyes closed rr even and unlabored.
--- NOTE | 2022-12-11 02:30 | NUR ---
Pt sleeping at this time up briefly ate snack and went back to sleep.
--- NOTE | 2022-12-11 05:13 | NUR ---
Pt sleeping resp even and unlabored.
--- NOTE | 2022-12-11 06:48 | NUR ---
Patient sleeping supine. No distress observed. Continue to monitor.
--- NOTE | 2022-12-11 08:23 | NUR ---
Patient eating breakfast. No distress observed. Continue to monitor.
[2022-12-11] MEDS: amox tr/potassium clavulanate 875/125mg TAB PO SCH ×2 (08:30→17:30)
--- NOTE | 2022-12-11 10:26 | NUR ---
Patient awake and sitting up in bed. No distress observed. Continue to monitor.
--- NOTE | 2022-12-11 12:19 | NUR ---
Patient eating lunch. No distress observed. Continue to monitor.
[2022-12-11] MEDS ORDERED: ibuprofen tablet 400 MG TABLET PO ONE (12:40)
--- NOTE | 2022-12-11 14:08 | NUR ---
Patient sleeping supine No distress observed. Continue to monitor.
--- NOTE | 2022-12-11 16:10 | NUR ---
Patient awake and sitting up in bed. No distress observed. Continue to monitor.
--- NOTE | 2022-12-11 17:36 | NUR ---
Patient eating dinner. No distress observed. Continue to monitor.
--- NOTE | 2022-12-11 21:18 | NUR ---
pt tx to 3rd floor security at bedside 2 pbb removed from locker and given to nurse
[2022-12-11] MEDS ORDERED: loperamide 2mg capsule PO PRN (21:40)
[2022-12-11] MEDS ORDERED: acetaminophen 325mg tablet PO PRN (21:40)
[2022-12-11] MEDS ORDERED: mag hydrox/Alum hydrox/simeth 30ml oral suspension PO PRN (21:40)
[2022-12-11] MEDS ORDERED: magnesium hydroxide 30ml (MOM) UD suspension PO PRN (21:40)
[2022-12-11] MEDS: ibuprofen tablet 400 MG TABLET PO PRN (23:16)
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
[2022-12-12 08:00] VITALS: BP 117/82
[2022-12-12] MEDS: amox tr/potassium clavulanate 875/125mg TAB PO SCH ×2 (08:30→17:30)
[2022-12-12 09:25] LABS: CHOL/HDL RATIO 1.9 (0.00-4.99); CHOLESTEROL 139 MG/DL (0-200); HDL CHOLESTEROL 74 MG/DL (35-60); LDL CHOLESTEROL 56 MG/DL (50-100); TRIGLYCERIDES 40 MG/DL (20-135)
[2022-12-12] MEDS: ibuprofen tablet 400 MG TABLET PO PRN ×2 (09:33→20:44)
[2022-12-12 09:48] LABS: HEMOGLOBIN A1C 5.4 % (4.5-6.2)
[2022-12-12] MEDS ORDERED: loperamide 2mg capsule PO PRN (17:25)
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
--- NOTE | 2022-12-12 17:50 | NUR ---
PIT SUPERVISOR documentation: I have reviewed and agree with all interventions, assessments performed and documented by Ira Alvarado.
[2022-12-12 19:23] VITALS: BP 124/85
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
[2022-12-13] MEDS: amox tr/potassium clavulanate 875/125mg TAB PO SCH ×2 (07:47→17:30)
[2022-12-13] MEDS: ibuprofen tablet 400 MG TABLET PO PRN ×2 (07:53→20:45)
[2022-12-13 08:00] VITALS: BP 109/68
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
--- NOTE | 2022-12-13 17:56 | NUR ---
AD TAKER documentation: I have reviewed and agree with all interventions, assessments performed and documented by Ira Sheridan
[2022-12-13 19:40] VITALS: BP 95/78
[2022-12-13] MEDS ORDERED: traZODone 50mg tablet PO PRN (23:25)
[2022-12-14] MEDS: acetaminophen 325mg tablet PO PRN ×2 (00:06→21:05)
[2022-12-14] MEDS: diphenhydrAMINE 25mg capsule PO PRN ×2 (00:07→21:05)
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
--- NOTE | 2022-12-14 04:38 | NUR ---
BODY PIERCER documentation: I have reviewed and agree with all interventions, assessments performed and documented by Marguerite Linn LVN.
[2022-12-14] MEDS: ibuprofen tablet 400 MG TABLET PO PRN ×2 (07:45→17:33)
[2022-12-14] MEDS: amox tr/potassium clavulanate 875/125mg TAB PO SCH ×2 (07:45→17:30)
[2022-12-14 08:00] VITALS: BP 106/67
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
[2022-12-14 19:22] VITALS: BP 97/76
[2022-12-14 19:23] VITALS: BP 102/66
[2022-12-14] MEDS: QUEtiapine 25mg tablet PO SCH (20:29)
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
[2022-12-15] MEDS: amox tr/potassium clavulanate 875/125mg TAB PO SCH ×2 (07:56→17:30)
[2022-12-15] MEDS: QUEtiapine 25mg tablet PO SCH (07:56)
[2022-12-15] MEDS: ibuprofen tablet 400 MG TABLET PO PRN (07:57)
[2022-12-15 08:00] VITALS: BP 116/60
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
[2022-12-15 19:00] VITALS: BP 93/65
[2022-12-15] MEDS: diphenhydrAMINE 25mg capsule PO PRN (20:35)
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
[2022-12-16 08:00] VITALS: BP 112/87
[2022-12-16] MEDS: amox tr/potassium clavulanate 875/125mg TAB PO SCH ×2 (08:07→17:30)
[2022-12-16] MEDS: ibuprofen tablet 400 MG TABLET PO PRN ×2 (09:02→20:59)
--- NOTE | 2022-12-16 12:26 | NUR ---
Initial: Pt admit for psychosis. Currently on a regular diet with fluctuating PO intake however overall eating well with average 59% PO intake since admit which meets 91% estimated energy needs and 100% estimated protein needs. Pt appears to be participating in snacks per contract administrator. Pt reports having a BM 3/ per contract administrator. No nutrition intervention implemented at this time. Will continue to follow. Recommendations: 1) Continue regular diet 2) Encourage PO intake 3) Consider routine MVM with Iron and vitamin B12 supplementation d/t h/o gastric bypass 4) Bowel care PRN 5) Weekly scaled weights Addendum: 12/16/22 at [address] Amended: Links added.
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
[2022-12-16 19:00] VITALS: BP 95/70
[2022-12-16] MEDS: QUEtiapine 25mg tablet PO SCH (20:57)
[2022-12-16] MEDS: acetaminophen 325mg tablet PO PRN (20:58)
[2022-12-16] MEDS: diphenhydrAMINE 25mg capsule PO PRN (20:59)
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
[2022-12-17 08:00] VITALS: BP 110/76
[2022-12-17] MEDS: amox tr/potassium clavulanate 875/125mg TAB PO SCH ×2 (08:10→17:30)
[2022-12-17] MEDS: ibuprofen tablet 400 MG TABLET PO PRN (08:34)
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
--- NOTE | 2022-12-17 17:53 | NUR ---
CROWN BLOCKER documentation: I have reviewed and agree with all interventions, assessments performed and documented by Harley Sandhu LVN.
[2022-12-17 20:00] VITALS: BP 117/88
[2022-12-17] MEDS: QUEtiapine 25mg tablet PO SCH (21:00)
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
[2022-12-18] MEDS: ibuprofen tablet 400 MG TABLET PO PRN ×2 (05:15→15:34)
--- NOTE | 2022-12-18 05:36 | NUR ---
FLESHING MACHINE OPERATOR documentation: I have reviewed and agree with all interventions, assessments performed and documented by Harley Segura LVN this shift.
[2022-12-18] MEDS: acetaminophen 325mg tablet PO PRN ×2 (06:44→16:57)
[2022-12-18 08:00] VITALS: BP 106/77
[2022-12-18] MEDS: amox tr/potassium clavulanate 875/125mg TAB PO SCH ×2 (08:30→17:30)
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
--- NOTE | 2022-12-18 17:50 | NUR ---
ANIMAL HUSBANDRY MANAGER documentation: I have reviewed and agree with all interventions, assessments performed and documented by SERA Roth.
[2022-12-18 18:35] LABS: CLARITY,URINE CLEAR (Clear); COLOR,URINE YELLOW (Yellow); GLUCOSE, URINE NEGATIVE (Neg); KETONES,URINE TRACE mg/dl (Neg); LEUKOCYTE ESTERASE ,URINE TRACE (Neg); NITRITES, URINE NEGATIVE (Neg); OCCULT BLOOD,URINE NEGATIVE (Neg); PH,URINE 6.5 (4.8-8.0); PROTEIN,URINE NEGATIVE (Neg); UROBILINOGEN,URINE 0.2 E.U/dL (0.2-1.0)
[2022-12-18 18:50] LABS: UA COLLECTION TYPE CLN CATCH MIDSTREAM
[2022-12-18 18:54] LABS: BACTERIA,URINE NONE SEEN /HPF (Neg); MUCUS STRANDS MODERATE /LPF (Neg); RBC,URINE NONE SEEN /HPF (0-2); SQUAMOUS EPITHELIAL CELL,UR FEW /LPF (FEW); WBC,URINE 0-4 /HPF (0-4)
[2022-12-18 20:00] VITALS: BP 100/66
[2022-12-18] MEDS: diphenhydrAMINE 25mg capsule PO PRN (22:43)
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
[2022-12-19] MEDS: ibuprofen tablet 400 MG TABLET PO PRN ×2 (04:41→13:43)
[2022-12-19 07:56] VITALS: BP 107/74
[2022-12-19] MEDS: acetaminophen 325mg tablet PO PRN (14:38)
[2022-12-19] MEDS ORDERED: DICLOFENAC SODIUM 1% gel 1 APPLIC APPLIC TP ONE (16:50)
[2022-12-19] MEDS ORDERED: HYDROcodone/acetaminophen 10/325mg tab PO ONE (16:50)
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
[2022-12-19 20:00] VITALS: BP 102/77
[2022-12-19] MEDS: DICLOFENAC SODIUM 1% gel 1 APPLIC APPLIC TP SCH (20:00)
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
[2022-12-20] MEDS: ibuprofen tablet 400 MG TABLET PO PRN ×2 (05:47→20:35)
[2022-12-20 08:00] VITALS: BP 104/72
[2022-12-20] MEDS: DICLOFENAC SODIUM 1% gel 1 APPLIC APPLIC TP SCH ×2 (08:00→20:00)
[2022-12-20] MEDS: acetaminophen 325mg tablet PO PRN ×2 (11:27→22:48)
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
[2022-12-20 19:00] VITALS: BP 100/67
[2022-12-20] MEDS ORDERED: methyl salicylate/menthol cream 57gm TP PRN (22:00)
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
[2022-12-21 08:00] VITALS: BP 110/78
--- NOTE | 2022-12-21 10:57 | NUR ---
DISCHARGE PLAN Pt. is medically cleared to be discharged today. This Photographic Engineer went in to confirm her discharge plan. Pt. was very agitated that she was being discharged claiming that she has never been seen by a Psychiatrist. Pt. has been seen every day by VANDANA Vincent, this was explained to her. This Photographic Engineer asked her why she wanted to see a Psychiatrist since she is refusing all Psych medications and does not believe she has any psychiatric problems. Pt. did not have an answer to this question. Pt. refused a cab to the [facility], Pt refused a cab to [employer] [place] which is where her car and belongings are. Pt. reported that she will leave and go right to the ER because "we aren't doing anything about her back pain". This Photographic Engineer brought her her debit card to help her activate it so she can retrieve the $500 dollars that the [employer] department deposited on it. (She has 500 dollar in márquez when she was arrested so they took the márquez and gave her the debit card where they deposited the márquez). Pt. had told this Photographic Engineer it did not work at the [facility] but she had not activated it. Pt. refused to allow this Photographic Engineer to help her and shouted "Fuck You". Cynthia Shipley LCSW
--- NOTE | 2022-12-21 11:05 | NUR ---
Discharge Note: Pt. refused to sign all paperwork. This telegraphic typewriter repairer documented the refusal on all forms, copies made and placed in chart. All inventory accounted for and returned to pt. when she left. Pt. refused to discuss f/u appt. Pt. was escorted off the unit in a WC. Discharge time 1104.
== END 2022-12-21 11:04 | disposition home or self-care (01) | DRG 885 ==
LOC: ED HOLD 12-11 17:45 → ADULT MH 12-11 21:37
PROVIDERS: ADMIT Psychiatry & Neurology Psychiatry; ATTEND Psychiatry & Neurology Psychiatry
PROC: B3251ZZ Computerized Tomography (CT Scan) of Bilateral Common Carotid Arteries using Low Osmolar Contrast (ICD-10-PCS; principal; 2022-12-09)
PROC: B32G1ZZ Computerized Tomography (CT Scan) of Bilateral Vertebral Arteries using Low Osmolar Contrast (ICD-10-PCS; 2022-12-09)
PROC: B32R1ZZ Computerized Tomography (CT Scan) of Intracranial Arteries using Low Osmolar Contrast (ICD-10-PCS; 2022-12-09)
PROC: B3281ZZ Computerized Tomography (CT Scan) of Bilateral Internal Carotid Arteries using Low Osmolar Contrast (ICD-10-PCS; 2022-12-09)
DX: F22 Delusional disorders (principal); F23 Brief psychotic disorder; N39.0 Urinary tract infection, site not specified; E03.9 Hypothyroidism, unspecified; Z20.822 Contact with and (suspected) exposure to COVID-19; G40.909 Epilepsy, unspecified, not intractable, without status epilepticus; G89.29 Other chronic pain; M54.50 Low back pain, unspecified; Z59.00 Homelessness unspecified; Z88.2 Allergy status to sulfonamides; Z90.49 Acquired absence of other specified parts of digestive tract; Z90.710 Acquired absence of both cervix and uterus; Z98.2 Presence of cerebrospinal fluid drainage device; Z98.84 Bariatric surgery status; Z79.899 Other long term (current) drug therapy
CPT/HCPCS: 36415; 80053; 80061; 80305; 80320; 81001; 81025; 83036; 84443; 85025; 87081; 87088; 87811; 99285; Q0163; Q9967

== ENCOUNTER 2022-12-23 17:20 | Emergency (ER) | payer SELFPAY ==
[~2022-12-23] VITALS: Ht 165.1 cm; Wt 56.8 kg
[~2022-12-23 17:20] MED LIST changes: -OLAN10TA73 PO
[2022-12-23 18:26] LABS: BASOPHILS % (AUTO) 0.5 % (0-1); EOSINOPHILS # (AUTO) 0.2 X10'3 (0-0.9); EOSINOPHILS % (AUTO) 1.6 % (0-6); HEMATOCRIT 42.7 % (35.0-45.0); HEMOGLOBIN 13.5 g/dl (12.0-16.0); LYMPHOCYTES # (AUTO) 2.4 X10'3 (1.1-4.8); LYMPHOCYTES % (AUTO) 24.4 % (21-51); MEAN CORPUSCULAR HEMOGLOBIN 27.2 PG (27.0-31.0); MEAN CORPUSCULAR HGB CONC 31.6 g/dL (33.0-36.5); MEAN CORPUSCULAR VOLUME 86.1 FL (78-98); MEAN PLATELET VOLUME 9.1 FL (7.4-10.4); MONOCYTES # (AUTO) 0.8 X10'3 (0-0.9); MONOCYTES % (AUTO) 8.1 % (2-12); NEUTROPHILS # (AUTO) 6.3 X10'3 (1.8-7.7); NEUTROPHILS % (AUTO) 65.4 % (42-75); PLATELET COUNT 307 X10'3 (140-440); RED BLOOD COUNT 4.96 X10'6 (4.20-5.60); RED CELL DISTRIBUTION WIDTH 15.6 % (11.5-14.5); WHITE BLOOD COUNT 9.7 X10'3 (4.5-11.0)
[2022-12-23 18:40] LABS: ALANINE AMINOTRANSFERASE 25 U/L (12-78); ALBUMIN 4.2 G/DL (3.4-5.0); ALBUMIN/GLOBULIN RATIO 1.3 (1.1-1.5); ALKALINE PHOSPHATASE 87 IU/L (46-116); ANION GAP 10 (8-16); ASPARTATE AMINO TRANSFERASE 24 U/L (10-37); BILIRUBIN,TOTAL 0.3 MG/DL (0.1-1.0); BLOOD UREA NITROGEN 23 MG/DL (7-18); BUN/CREATININE RATIO 26.1 (6.6-38.0); CALCIUM 9.4 MG/DL (8.5-10.1); CHLORIDE 105 MMOL/L (99-107); CREATININE 0.88 MG/DL (0.40-0.90); GLUCOSE 99 MG/DL (70-104); POTASSIUM 4.2 MMOL/L (3.5-5.1); SODIUM 142 MMOL/L (135-145); TOTAL CARBON DIOXIDE 26.8 MMOL/L (24-32); TOTAL PROTEIN 7.4 G/DL (6.4-8.2); eGFR 66 ML/MIN
[2022-12-23 18:49] LABS: ETHANOL < 0.010 GM/DL (0.0-0.010)
[2022-12-23 19:52] LABS: URINE HCG NEGATIVE (NEG)
[2022-12-23 20:02] LABS: CLARITY,URINE CLOUDY (Clear); COLOR,URINE YELLOW (Yellow); GLUCOSE, URINE 100 mg/dl (Neg); KETONES,URINE TRACE mg/dl (Neg); LEUKOCYTE ESTERASE ,URINE TRACE (Neg); NITRITES, URINE NEGATIVE (Neg); OCCULT BLOOD,URINE NEGATIVE (Neg); PH,URINE 5.5 (4.8-8.0); PROTEIN,URINE TRACE mg/dl (Neg); UROBILINOGEN,URINE 0.2 E.U/dL (0.2-1.0)
[2022-12-23 20:04] LABS: URINE AMPHETAMINE SCREEN NEGATIVE (Neg); URINE BARBITUATE SCREEN NEGATIVE (Neg); URINE BENZODIAZEPINES SCREEN NEGATIVE (Neg); URINE CANNABINOID SCREEN POSITIVE (Neg); URINE COCAINE SCREEN NEGATIVE (Neg); URINE METHADONE SCREEN NEGATIVE (Neg); URINE OPIATE SCREEN NEGATIVE (Neg); URINE PHENCYCLIDINE SCREEN NEGATIVE (Neg)
[2022-12-23 20:07] LABS: UA COLLECTION TYPE CLN CATCH MIDSTREAM
[2022-12-23 20:09] LABS: BACTERIA,URINE FEW /HPF (Neg); MUCUS STRANDS MANY /LPF (Neg); RBC,URINE NONE SEEN /HPF (0-2); SQUAMOUS EPITHELIAL CELL,UR MANY /LPF (FEW)
[2022-12-23 20:10] LABS: CAL OXALATE CRYSTALS 3+ /HPF (NEGATIVE); WBC CLUMPS,URINE FEW /HPF (NEGATIVE)
--- NOTE | 2022-12-23 20:42 | NUR ---
Report given to Yue at this time who kindly accepts report. Patient will go to overflow pending ready bed.
--- NOTE | 2022-12-23 21:33 | NUR ---
Patient sitting in room with a blanket on. No distress noted.
--- NOTE | 2022-12-23 22:17 | NUR ---
patient given additional food items per request. Patient also requests belongings list (document) to stay with her.
--- NOTE | 2022-12-23 22:30 | NUR ---
Patient ambulatory, steady gait from Main ED Rm 8 to ED OF bed 24. Patient is calm and cooperative. Warm blankets given. No distress observed. Continue to monitor.
--- NOTE | 2022-12-23 23:10 | NUR ---
Gave patient a snack of cheese and crackers. No distress observed. Continue to monitor.
--- NOTE | 2022-12-24 00:19 | NUR ---
Patient sleeping. No distress observed. Continue to monitor.
--- NOTE | 2022-12-24 02:06 | NUR ---
Patient sleeping. No distress observed. Continue to monitor.
--- NOTE | 2022-12-24 04:15 | NUR ---
Patient sitting up in bed awake with her knees to her chest. No distress observed. Continue to monitor.
--- NOTE | 2022-12-24 05:25 | NUR ---
Patient reclining in be and appears to be asleep. No distress observed. Continue to monitor.
--- NOTE | 2022-12-24 06:49 | NUR ---
Received Pt in bed sleeping w/o distress at this time.
--- NOTE | 2022-12-24 08:00 | NUR ---
PAGE SENT TO [employer] AREA SUPERVISOR AT THE REQUEST OF THE [facility] FOR A CONSULT. PT HERE ON A WRITTEN 5151 THAT IS NOT BEING UPHELD BY THE [facility] AND REQUESTED SOCIAL SERVICED COME TO CONSULT FOR PT ASSISTANCE.
--- NOTE | 2022-12-24 08:30 | NUR ---
Pt woke and ate breakfast w/o issue. Pt has no scheduled medications.
--- NOTE | 2022-12-24 08:30 | NUR ---
raisa sent pt packet to [facility]
--- NOTE | 2022-12-24 10:57 | NUR ---
Pt seen by [facility] and became agitated at not being placed on a 5150 hold and was cursing at the [facility] clinician for not beleiving that the president is and that Obama is now in his place; "your a liar a fucking liar. you are beyond fucked up!". Pt able to calm. 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
--- NOTE | 2022-12-24 12:32 | NUR ---
Pt in bed eating lunch and in no distress. Pt requesting pain med for back pain. Dr Esteves encouraged Pt to take med for uti and she reluctantly agreed. Pt beleives Tylenol causes autism and spoke about many allergies. Pt willing to take [place] once, although it makes her itch slightly.
--- NOTE | 2022-12-24 14:23 | NUR ---
Pt in bed smiling and writing. Pt is irritated at [facility] clinician, but is pleasant to [facility] staff. Consult has been submitted to [facility] social work.
[2022-12-24] MEDS ORDERED: HYDROcodone/acetaminophen 5mg/325mg tablet PO ONE (15:30)
--- NOTE | 2022-12-24 15:50 | NUR ---
Pt given [place] for pain and she was appreciative. She remains in bed writing.
--- NOTE | 2022-12-24 17:31 | NUR ---
Pt sleeping w/o distress at this time.
--- NOTE | 2022-12-24 18:30 | NUR ---
Patient sitting up in bed. Rapid disorganzied speech noted. Pleasant, grandiose delusions noted. No needs noted at this time. Will continue to monitor.
[2022-12-24] MEDS: nitrofuran monohydrate/nitrofuran macrocrysal 100 MG (MacroBID) capsule PO SCH ×2 (20:00→21:35)
--- NOTE | 2022-12-24 21:00 | NUR ---
Patient refused Macrobid HS medication. Patient doesn't believe that she has a UTI and wanted another urine test to verify since ,"my underwear were dirty for the first one but they are clean now." Wasted medication. Will continue to monitor.
--- NOTE | 2022-12-24 23:30 | NUR ---
Patient sleeping, no needs noted. Will continue to monitor.
--- NOTE | 2022-12-25 01:48 | NUR ---
Patient resting with eyes closed. Appears to be sleeping. RR even/nonlabored and no s/sx of distress noted. Will continue to monitor.
--- NOTE | 2022-12-25 03:14 | NUR ---
Patient sleeping soundly. RR even/nonlabored. No s/sx of distress noted. Will continue to monitor.
--- NOTE | 2022-12-25 05:17 | NUR ---
Requested pain pill for 6/10 back pain. Patient is particular about seeing the package the medication comes out of before she'll consent to take it. Patient laid back down to rest. Will continue to monitor.
[2022-12-25] MEDS: HYDROcodone/acetaminophen 5mg/325mg tablet PO PRN ×2 (05:27→18:33)
--- NOTE | 2022-12-25 07:00 | NUR ---
Pt resting comfortably, rr even and unlabored.
[2022-12-25] MEDS: nitrofuran monohydrate/nitrofuran macrocrysal 100 MG (MacroBID) capsule PO SCH (08:00)
--- NOTE | 2022-12-25 08:00 | NUR ---
PT REFUSED HER MICROBID. DIRECT SUPPORT STAFF EDUCATED ON THE RISKS AND BENEFITS OF TAKING THE MEDICATIONS. PT STATES "I DO NOT HAVE A UTI!" "I NEED ANOTHER URINALYSIS."
--- NOTE | 2022-12-25 09:30 | NUR ---
Patient really didnt eat breakfast and now resting on and off in bed quietly.
--- NOTE | 2022-12-25 09:32 | NUR ---
Patient just got up to use the bathroom.
--- NOTE | 2022-12-25 11:15 | NUR ---
RN is at bedside taking notes from what the patient is saying to her. Pt is saying she wants to kill the president but the president is already .
--- NOTE | 2022-12-25 11:23 | NUR ---
pt sitting up brushing her hair in bed
--- NOTE | 2022-12-25 11:25 | NUR ---
pt is going to the bathroom
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
--- NOTE | 2022-12-25 13:00 | NUR ---
pt resting on her left side quietly
--- NOTE | 2022-12-25 13:20 | NUR ---
pt is still sleeping on left side
--- NOTE | 2022-12-25 15:45 | NUR ---
Pt given a snack of cheese and crackers.
--- NOTE | 2022-12-25 15:56 | NUR ---
Pt was up the bathroom, gait steady. Pt has been calm, with the high activity on unit.
--- NOTE | 2022-12-25 17:12 | NUR ---
Patient awake sitting up in bed. Pt has been napping intermittenly. Conversation with staff has been appropriate. Pt cooperative with vitals.
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
--- NOTE | 2022-12-25 23:14 | NUR ---
Pt has been watching TV. Turned off TV and said she was going to sleep.
--- NOTE | 2022-12-26 03:18 | NUR ---
Ambulated independently to BR back to bed sleeping.
--- NOTE | 2022-12-26 06:46 | NUR ---
Patient c/o of low back pain requested PRN [place]. Explained this was a BID order.
[2022-12-26] MEDS: nitrofuran monohydrate/nitrofuran macrocrysal 100 MG (MacroBID) capsule PO SCH ×3 (07:06→19:58)
--- NOTE | 2022-12-26 07:08 | NUR ---
pt is sitting up watching tv quietly
[2022-12-26] MEDS: HYDROcodone/acetaminophen 5mg/325mg tablet PO PRN ×2 (07:14→19:57)
--- NOTE | 2022-12-26 07:15 | NUR ---
Patient continues to refuse her Macobid. [facility] educated pt on her urine results and the risks and benefits of taking or not talking AXB. Pt refused even after explanation.
--- NOTE | 2022-12-26 08:00 | NUR ---
Left message for consult at ext. [phone]
--- NOTE | 2022-12-26 09:30 | NUR ---
One to one with patient to assess mood. Patient stated she "was worried about today." Pt is supposed to be assessed by SS today. Pt states "I am not safe to be discharged."
--- NOTE | 2022-12-26 09:49 | NUR ---
pt is sleeping quietly on right side
--- NOTE | 2022-12-26 11:30 | NUR ---
Pt was evaluated by [facility]. Pt does not meet criteria of a hold. SS has been requested to consult with patient. Pt continues to refuse any medication except for her [place] r/t "low back pain."
--- NOTE | 2022-12-26 13:03 | NUR ---
Pt lying in bed watchin T.V, no distress noted.
--- NOTE | 2022-12-26 15:02 | NUR ---
Pt laying in bed with eyes open. Pt calm.
--- NOTE | 2022-12-26 17:05 | NUR ---
Patient awake sitting up in bed. Pt is tearful "I just don't know what to do."
--- NOTE | 2022-12-26 19:30 | NUR ---
Pt braiding the hair of a peer. Pt calm.
--- NOTE | 2022-12-26 21:58 | NUR ---
Pt resting comfortably on left side. Pt able to self position.
--- NOTE | 2022-12-27 00:32 | NUR ---
Pt continues to rest comfortably, rr even and unlabored.
--- NOTE | 2022-12-27 02:46 | NUR ---
Pt was up to the bathroom then returned to bed.
--- NOTE | 2022-12-27 04:51 | NUR ---
Pt woke up asking for a snack, pt given cheese and crackers.
--- NOTE | 2022-12-27 06:45 | NUR ---
Patient sleeping prone. No distress observed. Continue to monitor.
--- NOTE | 2022-12-27 07:04 | NUR ---
PT ASLEEP, LAYING ON LEFT SIDE. WILL CONT TO MONITOR.
[2022-12-27] MEDS: nitrofuran monohydrate/nitrofuran macrocrysal 100 MG (MacroBID) capsule PO SCH ×2 (08:00→19:41)
--- NOTE | 2022-12-27 08:09 | NUR ---
Patient eating breakfast. No distress observed. Continue to monitor.
--- NOTE | 2022-12-27 10:01 | NUR ---
PT UP TO USE RESTROOM, THEN BACK INTO BED
--- NOTE | 2022-12-27 10:18 | NUR ---
Patient asking for Dr. Olivas so he can prescribe her Voltrans cream for her pain. RN explains that Dr. Olivas does not come down to this area. RN advised patient that she has a [place] she can take twice a day. Patient states she wants to wait on that. Continue to monitor.
[2022-12-27] MEDS: HYDROcodone/acetaminophen 5mg/325mg tablet PO PRN ×2 (10:50→18:50)
--- NOTE | 2022-12-27 12:11 | NUR ---
Patient eating lunch. No distress observed. Continue to monitor.
--- NOTE | 2022-12-27 14:03 | NUR ---
Patient watching T.V. No distress observed. Continue to monitor.
--- NOTE | 2022-12-27 16:25 | NUR ---
Patient reclining and watching T.V. No distress observed. Continue to monitor.
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
--- NOTE | 2022-12-27 22:30 | NUR ---
The patient appears to be sleeping
--- NOTE | 2022-12-27 22:31 | NUR ---
The patient appears to be sleeping
--- NOTE | 2022-12-28 00:05 | NUR ---
The patient appears to be sleeping
--- NOTE | 2022-12-28 02:05 | NUR ---
The patient appears to be sleeping
--- NOTE | 2022-12-28 04:03 | NUR ---
The patient appears to be sleeping
--- NOTE | 2022-12-28 05:05 | NUR ---
The patient appeared to have slept well
--- NOTE | 2022-12-28 06:40 | NUR ---
Patient appears to be sleeping. No distress observed. Continue to monitor.
[2022-12-28] MEDS: HYDROcodone/acetaminophen 5mg/325mg tablet PO PRN ×2 (07:30→20:09)
[2022-12-28] MEDS: nitrofuran monohydrate/nitrofuran macrocrysal 100 MG (MacroBID) capsule PO SCH ×2 (07:43→20:00)
--- NOTE | 2022-12-28 08:12 | NUR ---
Patient eating breakfast. No distress observed. Continue to monitor.
--- NOTE | 2022-12-28 10:03 | NUR ---
Patient reclining in bed asleep. No distress observed. Continue to monitor.
--- NOTE | 2022-12-28 12:07 | NUR ---
Patient eating lunch. No distress observed. Continue to monitor.
--- NOTE | 2022-12-28 15:01 | NUR ---
Patient sleeping on right side. No distress observed. Continue to monitor.
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
[2022-12-28] MEDS ORDERED: diphenoxylate/atropine tablet (Lomotil) PO ONE (19:20)
--- NOTE | 2022-12-28 21:24 | NUR ---
The patient appears to be sleeping
--- NOTE | 2022-12-28 23:41 | NUR ---
The patient appears to be sleeping
--- NOTE | 2022-12-29 00:58 | NUR ---
The patient is sleeping
--- NOTE | 2022-12-29 02:58 | NUR ---
The patient appears to be sleeping
--- NOTE | 2022-12-29 04:59 | NUR ---
The patient appears to be sleeping
--- NOTE | 2022-12-29 06:48 | NUR ---
Assumed care of patient that appears to be sleeping. No distress noted.
[2022-12-29] MEDS: HYDROcodone/acetaminophen 5mg/325mg tablet PO PRN ×2 (07:07→19:48)
[2022-12-29] MEDS ORDERED: ibuprofen tablet 400 MG TABLET PO PRN (07:50)
[2022-12-29] MEDS: nitrofuran monohydrate/nitrofuran macrocrysal 100 MG (MacroBID) capsule PO SCH (08:00)
--- NOTE | 2022-12-29 08:14 | NUR ---
Patient sitting on her bed eating her breakfast meal.
--- NOTE | 2022-12-29 11:07 | NUR ---
Patient appears to be sleeping in supine position. RR even and unlabored. No s/sx of distress.
--- NOTE | 2022-12-29 12:11 | NUR ---
Patient sitting on her bed eating lunch.
--- NOTE | 2022-12-29 15:14 | NUR ---
Patient has been lying quietly in her bed watching TV. denies needs.
--- NOTE | 2022-12-29 17:52 | NUR ---
Patient has been quietly watching TV this afternoon. She denies needs.
--- NOTE | 2022-12-29 18:03 | NUR ---
Partha rivera in ED - 12/29/22 at 1805 by [id number] pt informed tech they will tell RN if the pain begins to be unbearable.
--- NOTE | 2022-12-29 18:45 | NUR ---
Pt calm and cooperative with care. Ate 100% of meal. Pt has been watching TV.
--- NOTE | 2022-12-29 22:30 | NUR ---
Pt appears to be sleeping.
--- NOTE | 2022-12-30 00:58 | NUR ---
Pt appears to be sleeping.
--- NOTE | 2022-12-30 04:11 | NUR ---
Pt appears to be sleeping.
--- NOTE | 2022-12-30 06:51 | NUR ---
Patient is lying in bed and appears to be waking up. No S/S of distress noted.
[2022-12-30] MEDS: HYDROcodone/acetaminophen 5mg/325mg tablet PO PRN (08:01)
--- NOTE | 2022-12-30 08:23 | NUR ---
Patient eating breakfast. Complaints of back pain from old injury, medicated.
--- NOTE | 2022-12-30 12:25 | NUR ---
Spoke with Nessa from career services assistant, pt may discharged she has access to funds and does not meet criteria to stay.
--- NOTE | 2022-12-30 13:01 | NUR ---
Patient is being discharged per director. Patient has her own clothing. She is being discharged to the street, as she can not go back to the [facility]. Per director patient get 3100.00 per month.
--- NOTE | 2022-12-30 13:54 | NUR ---
Patient will not get dressed and is unwilling to sign discharge paperwork. She is stating that when she leaves, she will walk in the other door and be readmitted. Security called to assist patient to leave department.
[2022-12-30 13:57] VITALS: BP 100/60
== END 2022-12-30 14:01 | disposition still patient (30) ==
LOC: ER 17:20
DX: R45.851 Suicidal ideations (principal); Z20.822 Contact with and (suspected) exposure to COVID-19; Z88.2 Allergy status to sulfonamides; Z88.6 Allergy status to analgesic agent; Z88.5 Allergy status to narcotic agent
CPT/HCPCS: 36415; 80053; 80305; 80320; 81001; 81025; 84443; 85025; 87811; 99285

== ENCOUNTER 2025-09-04 05:21 | Emergency (ER) | payer OTHER ==
[~2025-09-04] VITALS: Ht 165.1 cm; Wt 59.1 kg
[2025-09-04 07:30] VITALS: TEMP 97.7
[2025-09-04] MEDS: normal saline 1000ML IV soln IVB ONE (07:43)
[2025-09-04 07:44] LABS: MEAN PLATELET VOLUME 9.3 FL (7.4-10.4); RED CELL DISTRIBUTION WIDTH 13.3 % (11.5-14.5)
[2025-09-04] MEDS: metoclopramide 5 mg/ml inj IV ONE (07:45)
[2025-09-04 07:52] LABS: CREATININE 0.81 MG/DL (0.40-0.90); TOTAL CARBON DIOXIDE 23.6 MMOL/L (24-32); eCRCL 67 ML/MIN; eGFR 72 ML/MIN
[2025-09-04 07:54] LABS: INR 1.0 INR
--- NOTE | 2025-09-04 08:26 | Physician Documentation ---
History of Present Illness ~ General Chief Complaint: Multiple Medical Complaints Stated Complaint: FLANK PAIN Time Seen by MD: 07:08 OK to notify your PCP?: Yes Primary Medical Doctor: [facility] Mode of Arrival: EMS History of Present Illness Initial Comments 59-year-old female patient who is homeless living in her vehicle status post gastric bypass surgery done in 2006 was brought to the emergency room by ambulance because of not feeling good since Monday with vomiting of liquids without any blood or coffee-ground stuff. She is not taking any regular medications. She uses cannabis but denies smoking and drinking. She is stating that she can not keep anything down but she says she wants to drink. Denies chest pain denies abdominal pain. There is no shortness of breath. Medication Reconciliation Allergies: Coded Allergies: Sulfa (Sulfonamide Antibiotics) (Verified Adverse Reaction, Severe, ) acetaminophen (Verified Adverse Reaction, Unknown, 12/23/22) itching codeine (Verified Adverse Reaction, Unknown, 12/23/22) itching hydrocodone (Verified Adverse Reaction, Unknown, 12/23/22) itching Uncoded Allergies: Patient states "all Pain Medications." (Adverse Reaction, Severe, 05/01/22) Pt states, "some turn my face bright red with a rash, others shut down my lungs." Scheduled Ondansetron 8mg ODT (Ondansetron Odt), 1 TAB PO Q8H Simethicone (Simethicone), 1 CAP PO Q8H Scheduled PRN Diclofenac Sodium (Voltaren Arthritis Pain), 2 APPLIC TP BID PRN for pain/swelling Past Medical History Past Medical History: Hypothyroidism, *PSYCH* Past Surgical History: brain surgery Patient History: Patient reports no known family medical history. Alcohol Use: None Drug Use: none Lives with: Other Lives In: Homeless Occupation: retired Review of Systems ROS As stated above in the HPI, otherwise all systems are reviewed and negative. Physical Exam Physical Exam Vital Signs: Temperature: 97.7, Source: Oral, Heart Rate: 59, Respiratory Rate: 19, BP: 153/90, Pulse Oximetry: 99, Weight: 59.090 Oxygen Flow Rate: 0 Physical Exam Reviewed vital signs and they are well within normal range. Const: Does not appear to be in acute cardiopulmonary distress Head: Atraumatic Eyes: Normal Conjunctiva ENT: Normal External Ears, Nose and Mouth. Moist mucous membranes Neck: Full range of motion. No meningismus Resp: Clear to auscultation bilaterally. Normal work of breathing Cardio: Heart rate is 58/minute. Regular rate and rhythm, no murmurs. Skin well perfused Abd: Soft, non-tender, non-distended. Normal bowel sounds. No rebound or guarding Skin: No petechiae or rashes. Warm and dry Back: No midline or flank tenderness Ext: No cyanosis, or edema Neuro: Awake and alert Psych: Normal Mood and Affect Progress Results/Orders Results/Orders Orders - SEVEN CORTES MD General Nursing Order (09/04/25 07:15) Acute Abdomen (09/04/25 09:48) Completed Orders - SEVEN CORTES MD Cbc/Diff (09/04/25 07:15) Lipase (09/04/25 07:15) Hcg, Ur Ql (09/04/25 07:15) Pt Inr (09/04/25 07:15) Metoclopramide Inj (Reglan Inj) (09/04/25 07:15) Normal Saline 1000ml (0.9% Sodium Chlori (09/04/25 07:15) BMP (09/04/25 07:15) Diphenhydramine Inj (Benadryl Inj.) (09/04/25 07:15) Potassium Bicarb/Cit Acid Tab (K-Lyte Ta (09/04/25 08:25) Acute Abdomen (09/04/25 09:48) Ua W/Microscopic, Cult If Ind (09/04/25 10:51) Cult Urine + [place] [address] (09/04/25 11:16) Fosfomycin Tromethamine Packet (Monurol (09/04/25 11:25) Vital Signs 09/04/25 09/04/25 09/04/25 09/04/25 05:38 05:49 06:41 07:30 Temp 97.7 97.7 Pulse 70 59 Resp 16 16 19 B/P (MAP) 154/97 153/90 (111) Pulse Ox 98 99 O2 Flow Rate 0 09/04/25 09/04/25 11:24 11:57 Pulse 87 79 Resp 15 15 B/P (MAP) 149/89 (109) 149/89 Pulse Ox 97 98 O2 Flow Rate 0 Laboratory Tests Test 09/04/25 07:29 09/04/25 10:51 White Blood Count 10.2 Red Blood Count 4.82 Hemoglobin 15.0 Hematocrit 44.0 Mean Corpuscular Volume 91.3 Mean Corpuscular Hemoglobin 31.2 H Mean Corpuscular Hemoglobin Concent 34.2 Red Cell Distribution Width 13.3 Platelet Count 283 Mean Platelet Volume 9.3 Neutrophils (%) (Auto) 84.9 H Lymphocytes (%) (Auto) 10.6 L Monocytes (%) (Auto) 3.8 Eosinophils (%) (Auto) 0.2 Basophils (%) (Auto) 0.5 Neutrophils # (Auto) 8.7 H Lymphocytes # (Auto) 1.1 Monocytes # (Auto) 0.4 Eosinophils # (Auto) 0.0 Basophils # (Auto) 0.0 CBC Comment Prothrombin Time 10.6 INR International Normalized Ratio 1.0 Coagulation Comments Sodium Level 142 Potassium Level 3.1 L Chloride Level 104 Carbon Dioxide Level 23.6 L Anion Gap 14 Blood Urea Nitrogen 22 H Creatinine 0.81 Estimated GFR/1.73 m2 72 BUN/Creatinine Ratio 27.2 H Glucose Level 124 H Calcium Level 8.8 Albumin 4.3 Lipase 34 Chemistry Comments Urine Specimen Description Cln catch midstream Urine Color Brown Urine Clarity Slightly cloudy Urine pH 5.5 Urine Specific [place] 1.020 Urine Protein Trace Urine Glucose (UA) Negative Urine Ketones 40 H Urine Occult Blood Negative Urine Nitrite Negative Urine Bilirubin Small Urine Urobilinogen 0.2 Urine Leukocyte Esterase Moderate H Urine RBC 0-2 Urine WBC 5-10 H Urine Squamous Epithelial Cells Moderate Urine Bacteria 1+ Urine Mucus Few Urine Culture Indicated Indicated Volume Urine Centrifuged 10 ml Urine HCG, Qualitative Negative Urine Comment Microbiology Date/Time Source Procedure Growth Status 09/04/25 11:16 Urine Clean Catch Midstream Urine Culture - Final MIXED SAMANTHA ISOLATED.... Complete Medical Decision Making Additional information obtaine: old records Findings During the physical examination, the findings suggestive of acute life-threateni ng condition such as JVD, tracheal deviation, acidotic breathing, noisy stridorous breath sounds, pulses paradoxus, muffled heart sounds, unequal breath sounds, abdominal rigidity and rebound tenderness, focal neurological deficits, cool clammy skin, severe hypotension, severe tachycardia or bradycardia are absent. Physical examination is unremarkable and there is no abdominal tenderness. CBC showed WBC 10.2 H and H 15 and 44 platelets 283. Sodium 142 potassium 3.1 chloride 104 bicarb 23.6 BUN 22 creatinine 0.81 glucose 124 lipase 34. Abdominal acute series shows guess filled gut. UA showed WBC 5 to 10 with leukocyte esterase positive and for that I will give her a single dose of fosfomycin. Patient does not have identifiable emergent medical condition that warrants inpatient medical care at this time. The patient is deemed safe for discharge with outpatient follow up. DISCLAIMER Inadvertent spelling and grammatical errors,inadvertent clin application specialist errors,syntax errors, grammatical errors, and spelling errors are likely due to EMR/dictation software use and do not reflect on the overall quality of patient care. Note that the electronic time recorded on this note does not necessarily reflect the actual time of the patient encounter. Differential Diagnosis UTI Viral infection Homelessness dehydration electrolyte imbalance Departure Disposition: HOME / SELF CARE / HOMELESS Impression: Primary Impression: UTI (urinary tract infection) Additional Impression: Gaseous distention of intestine determined by X-ray Condition: Stable Discharge Instructions: Acute Urinary Retention, Female, [id number] Additional Instructions: Thank you for coming to our Emergency Department today. Please ask your nurse or provider if you have questions about your care today and do not leave until all your questions have been answered. Please use any medications given as directed and follow-up with your doctor (or the doctor you were referred to) in the next 1-3 days. Your primary care doctor can help to coordinate outpatient specialty care and provide authorization for specialty referral as needed. If you do not have a primary care doctor you may follow up at a [facility] facility. You may also use motrin and tylenol as needed for fever and/or pain unless instructed otherwise by your provider or nurse. Indications for more urgent follow-up have been discussed, but you may return to the Emergency Department at ANY time for any worrisome or worsening symptoms. [facility] Facilities: County Facilities: [facility]: Main [place] Address:[address] [place], [place] [id number] [facility]: [place] Address:[address] [place] [id number] [facility]: [facility] Address:[address] [place], [place] [id number] [facility] Address:[address] [place] [id number] Registration Billing Pharmacy Referrals [facility] Address:[address] [place] [address] Referrals: NO PRIMARY CARE PROVIDER (PCP) Prescriptions Ondansetron 8mg ODT (Ondansetron Odt) 8 Mg Tab.rapdis 1 TAB PO Q8H for nausea/vomiting, #6 TAB 0 Refills Prov: SEVEN CORTES MD 09/04/25 Simethicone (Simethicone) 180 Mg Capsule 1 CAP PO Q8H for 30 Days, #90 CAP 0 Refills Prov: SEVEN CORTES MD 09/04/25 Signature Scribe Signature: x Attestation: x SEVEN CORTES MD Sep 04, 2025 08:26
[2025-09-04] MEDS: potassium bicarbonate/cit acid 25mEq tablet.effervescent PO ONE (08:48)
--- NOTE | 2025-09-04 10:29 | RADIOLOGY REPORT ---
Procedure: DI ACUTE ABDOMEN Exam Date: 09/04/2025 09:58 AM History: Vomiting Comparison Study: None Technique: AP of the chest AP upright of the abdomen AP supine of the abdomen FINDINGS: No focal evidence of airspace disease. The cardiomediastinal silhouette is within normal limits. No acute osseous lesions. Right HITCH TECHNICIAN shunt catheter. Nonobstructive bowel gas pattern noted. There is no evidence for pneumoperitoneum. No abnormal calcifications noted. IMPRESSION: Non-specific gas-filled loops of bowel. END IMPRESSION:
[2025-09-04 11:07] LABS: LEUKOCYTE ESTERASE ,URINE MODERATE (Neg); NITRITES, URINE NEGATIVE (Neg); OCCULT BLOOD,URINE NEGATIVE (Neg)
[2025-09-04 11:10] LABS: UA COLLECTION TYPE CLN CATCH MIDSTREAM
[2025-09-04 11:11] LABS: URINE HCG NEGATIVE (NEG)
[2025-09-04 11:16] LABS: MUCUS STRANDS FEW /LPF (Neg); SQUAMOUS EPITHELIAL CELL,UR MODERATE /LPF (FEW)
[2025-09-04] MEDS ORDERED: ONDA-245 PO (11:29)
[2025-09-04] MEDS ORDERED: SIME180C61 PO (11:29)
[2025-09-04] MEDS: FOSFOMYCIN TROMETHAMINE 3 GM PACKET PO ONE (11:48)
[2025-09-04 11:57] VITALS: BP 149/89; PULSE 79; RESP 15; O2SAT 98
== END 2025-09-04 12:02 | disposition home or self-care (01) ==
LOC: ER 05:22
DX: N39.0 Urinary tract infection, site not specified (principal); R14.0 Abdominal distension (gaseous); F12.90 Cannabis use, unspecified, uncomplicated; E03.9 Hypothyroidism, unspecified; I49.9 Cardiac arrhythmia, unspecified; Z88.2 Allergy status to sulfonamides; Z88.5 Allergy status to narcotic agent; Z88.8 Allergy status to other drugs, medicaments and biological substances; Z79.899 Other long term (current) drug therapy; Z59.00 Homelessness unspecified
CPT/HCPCS: 36415; 74022; 80048; 81001; 81025; 83690; 85025; 85610; 87088; 96361; 96374; 96375; 99284; J1200; J2765; J7030